=== PATIENT | female | born 1965 | race Caucasian/White ===

== ENCOUNTER 2017-07-11 06:38 | Emergency (ER) | payer MEDICAID, OTHER ==
[~2017-07-11] VITALS: Ht 142.2 cm; Wt 68.0 kg
[2017-07-11 06:42] VITALS: Ht 142.2 cm; Wt 68.0 kg
--- NOTE | 2017-07-11 07:14 | ERD ---
ER Documentation Chief Complaint Chief Complaint dizziness x 5 days HPI Patient is a 51-year-old female with diabetes who presents with dizziness. She felt like her sugar was low. She is felt like this for about 1 week. She feels like the room is spinning. She had a headache as well. She does not take insulin for her diabetes she only takes oral pills. She was having some sweating. She said that she has been eating. Upon review of old medical records this is the patient's first visit to the emergency department. She goes to a local clinic for her care and has not called the primary doctor as of yet. ROS All systems reviewed and are negative except as per history of present illness. Allergies Allergies: Coded Allergies: Penicillins (Verified Allergy, Mild, rash, 07/11/17) PMhx/Soc Positive for diabetes FmHx Family History: No diabetes Physical Exam Vitals Vital Signs Date Time Temp Pulse Resp B/P Pulse Ox O2 Delivery O2 Flow Rate FiO2 07/11/17 06:42 97.5 80 18 122/58 98 Physical Exam Const: No acute distress Head: Atraumatic Eyes: Normal Conjunctiva ENT: Normal External Ears, Nose and Mouth. Neck: Full range of motion..~ No meningismus. Resp: Clear to auscultation bilaterally Cardio: Regular rate and rhythm, no murmurs Abd: Soft, non tender, non distended. Normal bowel sounds Skin: No petechiae or rashes Back: No midline or flank tenderness Ext: No cyanosis, or edema Neur: Awake and alert cranial nerves II through XII are intact, no slurred speech, strength is 5 out of 5 in all 4 extremities, no pronator drift Psych: Normal Mood and Affect Results 24 hrs Laboratory Tests Test 07/11/17 07:06 Bedside Glucose 86mg/dL Current Medications Medications (Trade) Dose Ordered Sig/Karol Route PRN Reason Start Time Stop Time Status Last Admin Dose Admin Ibuprofen (Motrin) 800 mg ONCE ONCE PO 07/11/17 07:30 07/11/17 07:31 Procedures/MDM Accu-Chek is normal. EKG read by me: Rate/Rhythm: Regular rate and rhythm at a rate of 77 Intervals: Normal Impression: No evidence of ischemia or arrhythmia Patient is a 51-year-old female who presents with dizziness. She felt like her sugar was low but her Accu-Chek is 86. Her EKG shows no signs of ischemia or arrhythmia. At this point I believe outpatient management is appropriate. The patient will need to follow-up closely with her primary doctor within 24-48 hours for evaluation. I believe the risk of doing a CT scan of the brain outweigh the benefits. I doubt stroke, intra-cranial mass, or intracranial hemorrhage. I doubt acute coronary syndrome. I doubt severe hypoglycemia. Departure Diagnosis: Primary Impression: Hypoglycemia Additional Impression: Dizziness Condition: Fair Patient Instructions: Dizziness, Unk Cause Additional Instructions: Llame al doctor MAANA y crow camron BRIDGETTE PARA DENTRO DE 1-2 MCCALLUM.Dgale a la secretaria que nosotros le instruimos hacer esta bridgette.Avise o llame si lawrence condicin se empeora antes de la bridgette. Regresa aqui si peor o no mejor. GILLIAN HASSAN MD Jul 11, 2017 07:14
[2017-07-11] MEDS ORDERED: IBUPROFEN 800 MG TAB PO ONE (07:30)
== END 2017-07-11 08:09 | disposition home or self-care (01) ==
LOC: E/R 06:38
DX: E10.649 Type 1 diabetes mellitus with hypoglycemia without coma (principal)
CPT/HCPCS: 82962; 93005; Z7502; Z7610

== ENCOUNTER 2019-01-17 16:01 | Inpatient (IN) | payer OTHER ==
[~2019-01-17] VITALS: Ht 142.2 cm; Wt 69.0 kg
[2019-01-18 00:35] VITALS: BP 136/62; PULSE 70; RESP 18
[2019-01-18 00:42] VITALS: Ht 142.2 cm; Wt 69.0 kg
[2019-01-18] MEDS ORDERED: MTF1000T PO (01:02)
[2019-01-18] MEDS ORDERED: GLIP5TAB13 PO (01:02)
[2019-01-18] MEDS ORDERED: ATOR40TA68 PO (01:02)
[2019-01-18] MEDS ORDERED: ALBUTEROL/IPRATROPIUM (NEB) 3 ML AMP HHN PRN (01:30)
[2019-01-18] MEDS: INSULIN ASPART [NOVOLOG] 3 ML PEN SC SCH ×5 (01:30→21:00)
[2019-01-18] MEDS ORDERED: ONDANSETRON 4 MG INJ IV PRN (01:30)
[2019-01-18] MEDS ORDERED: NACL 0.9% 3 ML SYG IV SCH (01:30)
[2019-01-18] MEDS ORDERED: ACETAMINOPHEN 325 MG TAB PO PRN (01:30)
[2019-01-18] MEDS: DEXTROSE 5%-0.45% NACL 1,000 ML IV SCH ×2 (01:57→10:26)
[2019-01-18 02:00] VITALS: BP 105/54; PULSE 72; RESP 18
[2019-01-18] MEDS ORDERED: GLUCOSE GEL 15 GRAM TUBE BUCCAL PRN (02:00)
[2019-01-18] MEDS ORDERED: DEXTROSE 50% 50 ML SYRINGE IV PRN ×2 (02:00)
[2019-01-18] MEDS ORDERED: ACCU-CHEK XX SCH (02:00)
[2019-01-18] MEDS ORDERED: GLUCOSE GEL 15 GRAM TUBE PO PRN ×2 (02:00)
[2019-01-18] MEDS ORDERED: GLUCAGON 1 MG INJ IM PRN (02:00)
[2019-01-18] MEDS: HYDROCODONE/APAP (5/325) TAB PO PRN ×2 (02:08→22:22)
--- NOTE | 2019-01-18 06:05 | HP ---
Date/Time of Note Date/Time of Note DATE: 01/18/19 TIME: 06:02 Assessment/Plan VTE Prophylaxis Pharmacological prophylaxis: heparin Lines/Catheters IV Catheter Type (from Nrsg): Peripheral IV Assessment/Plan Assessment/Plan 1. Right upper quadrant abdominal pain -Keep n.p.o. for now -Obtain abdominal imaging -Check liver chemistries, lipase and urinalysis -Pain management 2. Type 2 diabetes: Insulin while in-house 3. Dyslipidemia: will resume statin when no longer n.p.o. Results 24hrs Laboratory Tests Test 01/18/19 02:02 Bedside Glucose 120 HPI/ROS Admit Date/Time Admit Date/Time January 18, 2019 at 00:13 Hx of Present Illness This is a 53-year-old female with a history of type 2 diabetes and dyslipidemia who initially presented on outside hospital complaining of abdominal pain. Pain is mainly localized in the right upper quadrant area and has been going on for the past 2 to 3 weeks. Reported occasional nausea. Denied vomiting, diarrhea or constipation. She also denied fever/chills. Patient was transferred to [facility] for insurance reasons. She had a normal WBC. I do not have the results of her liver chemistries and lipase. PMH/Family/Social Past Medical History Past Surgical Hx: other (see hpi) Family History Significant Family History: no pertinent family hx Social History Alcohol Use: heavy (2 beers a day) Smoking Status: Never smoker Drug Use: none Exam Constitutional: other (no acute distress) ENMT: nl external ears & nose Neck: supple, non-tender Respiratory: normal air movement Cardiovascular: nl pulses Gastrointestinal: soft Extremities: normal pulses Medications Current Medications Dextrose/Sodium Chloride 1,000 ml @ 125 mls/hr Q8H IV Last administered on 01/18/19at 01:57; Admin Dose 125 MLS/HR; Start 01/18/19 at 01:29 IV Flush (NS 3 ml) 3 ml PER PROTOCOL IV ; Start 01/18/19 at 01:30 Ondansetron HCl (Zofran Inj) 4 mg Q6H PRN IV NAUSEA/VOMITING; Start 01/18/19 at 01:30 Acetaminophen (Tylenol Tab) 650 mg Q6H PRN PO .PAIN 1-3 OR TEMP; Start 01/18/19 at 01:30 Acetaminophen/ Hydrocodone Bitart ([place] (5/325)) 1 tab Q6H PRN PO .MOD PAIN 4- 6; Start 01/18/19 at 01:30 Acetaminophen/ Hydrocodone Bitart ([place] (5/325)) 2 tab Q6H PRN PO .SEVERE PAIN 7-10 Last administered on 01/18/19at 02:08; Admin Dose 2 TAB; Start 01/18/19 at 01:30 Albuterol/ Ipratropium (Duoneb) 3 ml Q2H RESP THERAPY PRN HHN SHORTNESS OF BREATH; Start 01/18/19 at 01:30 Diagnostic Test (Pha) (Accu-Chek) 1 ea 02 XX ; Start 01/18/19 at 02:00 Insulin Aspart (Novolog Insulin Pen) NOVOLOG *MODERATE* ALGORI... Q6H SC ; Start 01/18/19 at 01:30 Miscellaneous Information 1 ea NOTE XX ; Start 01/18/19 at 02:00 Glucose (Glutose) 15 gm Q15M PRN PO DECREASED GLUCOSE; Start 01/18/19 at 02:00 Glucose (Glutose) 22.5 gm Q15M PRN PO DECREASED GLUCOSE; Start 01/18/19 at 02:00 Dextrose (D50w Syringe) 25 ml Q15M PRN IV DECREASED GLUCOSE; Start 01/18/19 at 02:00 Dextrose (D50w Syringe) 50 ml Q15M PRN IV DECREASED GLUCOSE; Start 01/18/19 at 02:00 Glucagon (Glucagen) 1 mg Q15M PRN IM DECREASED GLUCOSE; Start 01/18/19 at 02:00 Glucose (Glutose) 15 gm Q15M PRN BUCCAL DECREASED GLUCOSE; Start 01/18/19 at 02:00 Coded Allergies: Penicillins (Verified Allergy, Mild, rash, 07/11/17) Social History Smoking Status: Never smoker Exam/Review of Systems Vital Signs Vitals Vital Signs Date Temp Pulse Resp B/P (MAP) Pulse Ox O2 O2 Flow FiO2 Time Delivery Rate 01/18/19 98.1 72 18 105/54 98 Room Air 02:00 (71) BARBARA AUSTIN MD January 18, 2019 06:05
[2019-01-18 08:34] VITALS: BP 103/55; PULSE 73; RESP 17
[2019-01-18 14:26] VITALS: BP 113/54; PULSE 73; RESP 18
--- NOTE | 2019-01-18 15:52 | PN ---
Date/Time of Note Date/Time of Note DATE: 01/18/19 TIME: 15:51 Assessment/Plan VTE Prophylaxis Risk score (from Nsg)>0 risk: 2 SCD applied (from Nsg): Yes Pharmacological prophylaxis: heparin Lines/Catheters IV Catheter Type (from Nrsg): Peripheral IV Assessment/Plan Hospital Course 53 yo female with h/o obesity, DMII, s/p cholecystectomy who presents with month of RUQ pain. [facility] at [facility] showed dilatad biliary ducts without obstruction. LFTs mildly elevated concernign for obstructive process - MRCP pending to evaluate biliary tree - No indication for abx at this time - No evidence of pancreatitis DMII: - Basal/bolus insulin Result Diagram: 01/18/19 0610 01/18/19 0610 Results 24hrs Laboratory Tests Test 01/18/19 02:02 01/18/19 06:00 01/18/19 06:10 01/18/19 07:52 Bedside Glucose 120 189 Urine Color YELLOW Urine Clarity CLEAR Urine pH 7.0 Urine Specific Central 1.008 Urine Ketones NEGATIVE Urine Nitrite NEGATIVE Urine Bilirubin NEGATIVE Urine Urobilinogen NEGATIVE Urine Leukocyte Esterase NEGATIVE Urine Microscopic RBC 4 Urine Microscopic WBC 0 Urine Squamous FEW Epithelial Cells Urine Bacteria FEW A Urine Hemoglobin 1+ H Urine Glucose NEGATIVE Urine Total Protein NEGATIVE White Blood Count 6.5 Red Blood Count 4.19 L Hemoglobin 11.9 L Hematocrit 36.9 L Mean Corpuscular Volume 88.1 Mean Corpuscular 28.4 L Hemoglobin Mean Corpuscular 32.2 Hemoglobin Concent Red Cell Distribution 13.4 Width Platelet Count 144 Mean Platelet Volume 11.7 H Immature Granulocytes % 0.200 Neutrophils % 48.3 Lymphocytes % 36.1 Monocytes % 4.9 Eosinophils % 10.3 H Basophils % 0.2 Nucleated Red Blood 0.0 Cells % Immature Granulocytes # 0.010 Neutrophils # 3.2 Lymphocytes # 2.4 Monocytes # 0.3 Eosinophils # 0.7 H Basophils # 0.0 Nucleated Red Blood 0.0 Cells # Prothrombin Time 13.9 Prothrombin Time Ratio 1.1 INR International 1.06 Normalized Ratio Activated 29.6 Partial Thromboplast Time Sodium Level 140 Potassium Level 4.9 Chloride Level 105 Carbon Dioxide Level 29 Anion Gap 6 Blood Urea Nitrogen 8 Creatinine 0.56 Est Glomerular Filtrat > 60 Rate mL/min Glucose Level 168 Hemoglobin A1c 9.4 H Calcium Level 8.9 Phosphorus Level 4.3 Magnesium Level 1.9 Total Bilirubin 1.2 Direct Bilirubin 0.00 Indirect Bilirubin 1.2 H Aspartate Amino 90 H Transf (AST/SGOT) Alanine 86 H Aminotransferase (ALT/SG PT) Alkaline Phosphatase 143 H Total Protein 6.5 Albumin 3.5 Globulin 3.00 Albumin/Globulin Ratio 1.16 Triglycerides Level 114 Cholesterol Level 114 LDL Cholesterol, 35 Calculated HDL Cholesterol 56 Cholesterol/HDL Ratio 2.0 Lipase 247 Test 01/18/19 12:08 Bedside Glucose 142 Subjective 24 Hr Interval Summary Free Text/Dictation Mild abdominal pain still present Comfortable Awaiting MRCP Exam/Review of Systems Exam Vitals Vital Signs Date Temp Pulse Resp B/P (MAP) Pulse Ox O2 O2 Flow FiO2 Time Delivery Rate 01/18/19 98.9 73 18 113/54 96 Room Air 14:26 (73) Intake and Output 01/17/19 01/17/19 01/18/19 1515:00 23:00 07:00 IntakeIntake Total 380 ml BalanceBalance 380 ml Constitutional: alert, oriented, well developed Psych: no complaints, nl mood/affect Head: normocephalic, atraumatic Eyes: nl conjunctiva, EOMI, nl lids, nl sclera, PERRL ENMT: nl external ears & nose, nl lips & teeth, nl nasal mucosa & septum Neck: supple, non-tender Respiratory: clear to auscultation, normal air movement Cardiovascular: regular rate and rhythm, nl pulses Gastrointestinal: soft, nl liver, spleen, non-tender Musculoskeletal: nl extremities to inspection, nl gait and stance Extremities: normal pulses Neurological: LIDAR TECHNICIAN II-XII intact, nl mental status, nl speech, nl strength Skin: nl turgor; No rash or lesions Lymph: nl lymph nodes Results Results 24hrs Laboratory Tests Test 01/18/19 02:02 01/18/19 06:00 01/18/19 06:10 01/18/19 07:52 Bedside Glucose 120 189 Urine Color YELLOW Urine Clarity CLEAR Urine pH 7.0 Urine Specific Central 1.008 Urine Ketones NEGATIVE Urine Nitrite NEGATIVE Urine Bilirubin NEGATIVE Urine Urobilinogen NEGATIVE Urine Leukocyte Esterase NEGATIVE Urine Microscopic RBC 4 Urine Microscopic WBC 0 Urine Squamous FEW Epithelial Cells Urine Bacteria FEW A Urine Hemoglobin 1+ H Urine Glucose NEGATIVE Urine Total Protein NEGATIVE White Blood Count 6.5 Red Blood Count 4.19 L Hemoglobin 11.9 L Hematocrit 36.9 L Mean Corpuscular Volume 88.1 Mean Corpuscular 28.4 L Hemoglobin Mean Corpuscular 32.2 Hemoglobin Concent Red Cell Distribution 13.4 Width Platelet Count 144 Mean Platelet Volume 11.7 H Immature Granulocytes % 0.200 Neutrophils % 48.3 Lymphocytes % 36.1 Monocytes % 4.9 Eosinophils % 10.3 H Basophils % 0.2 Nucleated Red Blood 0.0 Cells % Immature Granulocytes # 0.010 Neutrophils # 3.2 Lymphocytes # 2.4 Monocytes # 0.3 Eosinophils # 0.7 H Basophils # 0.0 Nucleated Red Blood 0.0 Cells # Prothrombin Time 13.9 Prothrombin Time Ratio 1.1 INR International 1.06 Normalized Ratio Activated 29.6 Partial Thromboplast Time Sodium Level 140 Potassium Level 4.9 Chloride Level 105 Carbon Dioxide Level 29 Anion Gap 6 Blood Urea Nitrogen 8 Creatinine 0.56 Est Glomerular Filtrat > 60 Rate mL/min Glucose Level 168 Hemoglobin A1c 9.4 H Calcium Level 8.9 Phosphorus Level 4.3 Magnesium Level 1.9 Total Bilirubin 1.2 Direct Bilirubin 0.00 Indirect Bilirubin 1.2 H Aspartate Amino 90 H Transf (AST/SGOT) Alanine 86 H Aminotransferase (ALT/SG PT) Alkaline Phosphatase 143 H Total Protein 6.5 Albumin 3.5 Globulin 3.00 Albumin/Globulin Ratio 1.16 Triglycerides Level 114 Cholesterol Level 114 LDL Cholesterol, 35 Calculated HDL Cholesterol 56 Cholesterol/HDL Ratio 2.0 Lipase 247 Test 01/18/19 12:08 Bedside Glucose 142 Medications Medication Current Medications IV Flush (NS 3 ml) 3 ml PER PROTOCOL IV ; Start 01/18/19 at 01:30 Ondansetron HCl (Zofran Inj) 4 mg Q6H PRN IV NAUSEA/VOMITING; Start 01/18/19 at 01:30 Acetaminophen (Tylenol Tab) 650 mg Q6H PRN PO .PAIN 1-3 OR TEMP; Start 01/18/19 at 01:30 Acetaminophen/ Hydrocodone Bitart ([place] (5/325)) 1 tab Q6H PRN PO .MOD PAIN 4- 6; Start 01/18/19 at 01:30 Acetaminophen/ Hydrocodone Bitart ([place] (5/325)) 2 tab Q6H PRN PO .SEVERE PAIN 7-10 Last administered on 01/18/19at 02:08; Admin Dose 2 TAB; Start 01/18/19 at 01:30 Albuterol/ Ipratropium (Duoneb) 3 ml Q2H RESP THERAPY PRN HHN SHORTNESS OF BREATH; Start 01/18/19 at 01:30 Insulin Aspart (Novolog Insulin Pen) NOVOLOG *MODERATE* ALGORI... Q6H SC Last administered on 01/18/19at 12:46; Admin Dose 2 UNIT; Start 01/18/19 at 01:30 Miscellaneous Information 1 ea NOTE XX ; Start 01/18/19 at 02:00 Glucose (Glutose) 15 gm Q15M PRN PO DECREASED GLUCOSE; Start 01/18/19 at 02:00 Glucose (Glutose) 22.5 gm Q15M PRN PO DECREASED GLUCOSE; Start 01/18/19 at 02:00 Dextrose (D50w Syringe) 25 ml Q15M PRN IV DECREASED GLUCOSE; Start 01/18/19 at 02:00 Dextrose (D50w Syringe) 50 ml Q15M PRN IV DECREASED GLUCOSE; Start 01/18/19 at 02:00 Glucagon (Glucagen) 1 mg Q15M PRN IM DECREASED GLUCOSE; Start 01/18/19 at 02:00 Glucose (Glutose) 15 gm Q15M PRN BUCCAL DECREASED GLUCOSE; Start 01/18/19 at 02:00 MARCELA ESTRADA MD January 18, 2019 15:52
[2019-01-18 20:00] VITALS: BP 117/60; PULSE 77; RESP 18
[2019-01-19] MEDS: ACCU-CHEK XX SCH (01:12)
[2019-01-19 02:00] VITALS: BP 92/47; PULSE 65; RESP 19
[2019-01-19 08:00] VITALS: BP 100/56; PULSE 65; RESP 17
[2019-01-19] MEDS: INSULIN ASPART [NOVOLOG] 3 ML PEN SC SCH ×4 (08:00→20:54)
[2019-01-19 14:00] VITALS: BP 113/57; PULSE 72; RESP 17
[2019-01-19] MEDS: HYDROCODONE/APAP (5/325) TAB PO PRN ×2 (14:06→22:01)
--- NOTE | 2019-01-19 15:45 | PN ---
Date/Time of Note Date/Time of Note DATE: 01/19/19 TIME: 15:33 Assessment/Plan VTE Prophylaxis Risk score (from Ns)>0 risk: 4 SCD applied (from Ns): Yes Pharmacological prophylaxis: NA/contraindicated Pharm contraindication: low risk/ambulating Lines/Catheters IV C[facility]ter Type (from [facility] [place] [facility] Assessment/Plan Hospital Course 1. Right upper quadrant pain Patient has been having constant right upper quadrant pain for 1 month now Patient with a history of cholecystectomy in the remote past MRCP shows mild intrahepatic and moderate extrahepatic biliary ductal dilatation without evidence of choledocholithiasis, finding could be secondary to prior cholecystectomy Differential diagnosis includes papillary stenosis or occult distal CBD stone, cirrhosis with stigmata of portal hypertension and mild splenomegaly also noted GI consultation obtained LFTs continue to increase 2. Cirrhosis likely secondary to obesity and LEONARD Weight loss 3. DMII Basal/bolus insulin A1c 9.4 Prophylaxis: SCDs Result Diagram: 01/19/19 0534 01/19/19 0534 Results 24hrs Laboratory Tests Test 01/18/19 17:26 01/18/19 21:33 01/19/19 05:33 01/19/19 05:34 Bedside Glucose 167 130 Phosphorus Level 5.3 H Magnesium Level 2.1 White Blood Count 5.8 Red Blood Count 4.03 L Hemoglobin 11.5 L Hematocrit 35.7 L Mean Corpuscular Volume 88.6 Mean Corpuscular 28.5 L Hemoglobin Mean Corpuscular 32.2 Hemoglobin Concent Red Cell Distribution 13.3 Width Platelet Count 149 Mean Platelet Volume 11.8 H Immature Granulocytes % 0.000 L Neutrophils % 38.9 L Lymphocytes % 43.5 Monocytes % 5.5 Eosinophils % 11.8 H Basophils % 0.3 Nucleated Red Blood 0.0 Cells % Immature Granulocytes # 0.000 Neutrophils # 2.2 Lymphocytes # 2.5 Monocytes # 0.3 Eosinophils # 0.7 H Basophils # 0.0 Nucleated Red Blood 0.0 Cells # Sodium Level 142 Potassium Level 4.1 Chloride Level 104 Carbon Dioxide Level 30 Anion Gap 8 Blood Urea Nitrogen 10 Creatinine 0.56 Est Glomerular Filtrat > 60 Rate mL/min Glucose Level 107 # Calcium Level 9.4 Total Bilirubin 1.6 H Direct Bilirubin 0.00 Indirect Bilirubin 1.6 H Aspartate Amino 131 H Transf (AST/SGOT) Alanine 133 H Aminotransferase (ALT/SG PT) Alkaline Phosphatase 196 H Total Protein 6.8 Albumin 3.8 Globulin 3.00 Albumin/Globulin Ratio 1.26 Hepatitis B Surface NEGATIVE Antigen Hepatitis B Core NEGATIVE Total Antibody Hepatitis C Antibody NEGATIVE Test 01/19/19 07:58 01/19/19 12:07 Bedside Glucose 107 149 Subjective 24 Hr Interval Summary Gastrointestinal: pain Exam/Review of Systems Exam Vitals Vital Signs Date Temp Pulse Resp B/P (MAP) Pulse Ox O2 O2 Flow FiO2 Time Delivery Rate 01/19/19 98.9 72 17 113/57 96 Room Air 14:00 (75) Intake and Output 01/18/19 01/18/19 01/19/19 1515:00 23:00 07:00 IntakeIntake Total 620 ml 600 ml 800 ml BalanceBalance 620 ml 600 ml 800 ml Constitutional: alert, oriented Respiratory: clear to auscultation Cardiovascular: regular rate and rhythm Gastrointestinal: soft, tender; No distended Musculoskeletal: nl extremities to inspection Results Results 24hrs Laboratory Tests Test 01/18/19 17:26 01/18/19 21:33 01/19/19 05:33 01/19/19 05:34 Bedside Glucose 167 130 Phosphorus Level 5.3 H Magnesium Level 2.1 White Blood Count 5.8 Red Blood Count 4.03 L Hemoglobin 11.5 L Hematocrit 35.7 L Mean Corpuscular Volume 88.6 Mean Corpuscular 28.5 L Hemoglobin Mean Corpuscular 32.2 Hemoglobin Concent Red Cell Distribution 13.3 Width Platelet Count 149 Mean Platelet Volume 11.8 H Immature Granulocytes % 0.000 L Neutrophils % 38.9 L Lymphocytes % 43.5 Monocytes % 5.5 Eosinophils % 11.8 H Basophils % 0.3 Nucleated Red Blood 0.0 Cells % Immature Granulocytes # 0.000 Neutrophils # 2.2 Lymphocytes # 2.5 Monocytes # 0.3 Eosinophils # 0.7 H Basophils # 0.0 Nucleated Red Blood 0.0 Cells # Sodium Level 142 Potassium Level 4.1 Chloride Level 104 Carbon Dioxide Level 30 Anion Gap 8 Blood Urea Nitrogen 10 Creatinine 0.56 Est Glomerular Filtrat > 60 Rate mL/min Glucose Level 107 # Calcium Level 9.4 Total Bilirubin 1.6 H Direct Bilirubin 0.00 Indirect Bilirubin 1.6 H Aspartate Amino 131 H Transf (AST/SGOT) Alanine 133 H Aminotransferase (ALT/SG PT) Alkaline Phosphatase 196 H Total Protein 6.8 Albumin 3.8 Globulin 3.00 Albumin/Globulin Ratio 1.26 Hepatitis B Surface NEGATIVE Antigen Hepatitis B Core NEGATIVE Total Antibody Hepatitis C Antibody NEGATIVE Test 01/19/19 07:58 01/19/19 12:07 Bedside Glucose 107 149 Medications Medication Current Medications IV Flush (NS 3 ml) 3 ml PER PROTOCOL IV ; Start 01/18/19 at 01:30 Ondansetron HCl (Zofran Inj) 4 mg Q6H PRN IV NAUSEA/VOMITING; Start 01/18/19 at 01:30 Acetaminophen (Tylenol Tab) 650 mg Q6H PRN PO .PAIN 1-3 OR TEMP; Start 01/18/19 at 01:30 Acetaminophen/ Hydrocodone Bitart ([place] (5/325)) 1 tab Q6H PRN PO .MOD PAIN 4- 6 Last administered on 01/19/19at 14:06; Admin Dose 1 TAB; Start 01/18/19 at 01:30 Acetaminophen/ Hydrocodone Bitart ([place] (5/325)) 2 tab Q6H PRN PO .SEVERE PAIN 7-10 Last administered on 01/18/19at 22:22; Admin Dose 2 TAB; Start 01/18/19 at 01:30 Albuterol/ Ipratropium (Duoneb) 3 ml Q2H RESP THERAPY PRN HHN SHORTNESS OF BREATH; Start 01/18/19 at 01:30 Miscellaneous Information 1 ea NOTE XX ; Start 01/18/19 at 02:00 Glucose (Glutose) 15 gm Q15M PRN PO DECREASED GLUCOSE; Start 01/18/19 at 02:00 Glucose (Glutose) 22.5 gm Q15M PRN PO DECREASED GLUCOSE; Start 01/18/19 at 02:00 Dextrose (D50w Syringe) 25 ml Q15M PRN IV DECREASED GLUCOSE; Start 01/18/19 at 02:00 Dextrose (D50w Syringe) 50 ml Q15M PRN IV DECREASED GLUCOSE; Start 01/18/19 at 02:00 Glucagon (Glucagen) 1 mg Q15M PRN IM DECREASED GLUCOSE; Start 01/18/19 at 02:00 Glucose (Glutose) 15 gm Q15M PRN BUCCAL DECREASED GLUCOSE; Start 01/18/19 at 02:00 Insulin Aspart (Novolog Insulin Pen) NOVOLOG *MODERATE* ALGORITHM WITH MEALS BEDTIME SC Last administered on 01/19/19at 12:12; Admin Dose 2 UNIT; Start 01/18/19 at 21:00 Diagnostic Test (Pha) (Accu-Chek) 1 02 XX ; Start 01/19/19 at 02:00 VASQUEZ HOLLAND January 19, 2019 15:43
--- NOTE | 2019-01-19 16:09 | CONS ---
Assessment/Plan Assessment/Plan Hospital Course (Demo Recall) Summary Assessment and Plan: Assessment: Dilated common bile duct- 15mm Right upper quadrant pain Imaging suggestive of cirrhosis -With stigmata of portal hypertension with mild splenomegaly DM, type 2 Over-weight Plan: Clear liquid diet ERCP late afternoon/evening 01/20/19 Endoscopy - risks/benefits/alternatives/indications of procedure and sedation/anesthesia discussed with patient who states understading and gives informed consent to proceed. Will order auto-immune work-up to further assess etiology questionable of liver cirrhosis CMP in am. NPO after 01/20/19 1100 Patient seen in collaboration with CC: MINNIE OSUNA MD ; Consultation Date/Type/Reason Admit Date/Time January 18, 2019 at 00:13 Date of Consultation: January 19, 2019 Type of Consult GI Reason for Consultation Elevated LFTS Dilated CBD 15mm Date/Time of Note DATE: 01/19/19 TIME: 16:02 Hx of Present Illness This is a 53-year-old female past medical history of obesity type 2 diabetes who presented to an outside hospital with complaints of abdominal pain she was transferred to [facility] for further work-up. Here patient underwent MRCP showing mild intrahepatic and moderate extrahepatic biliary ductal dilation without evidence of choledocholithiasis. Findings could be secondary to prior cholecystectomy, differential diagnosis includes papillary stenosis or occult distal CBD stone. Additionally there is mild liver surface nodularity findings suggestive of cirrhosis and stigmata of portal hypertension with mild splenomegaly. Labs were obtained LFTs are increasing since admission initially patient does have hyperbilirubinemia although this is indirect. A hepatitis serology was completed and is negative for hepatitis B/C. INR 1.06 and mild normocytic anemia is noted. Time evaluation patient is alert and oriented [place]vian-speaking her family is at bedside she continues to complain of right upper quadrant pain worse with palpation she denies nausea/vomiting, hematemesis, melena, hematochezia, diarrhea or constipation. Discussed plan for ERCP tomorrow. I reviewed risk/benefits of both sedation and procedure all verbalized understanding and agreeable to procedure Review of Systems: A 12 system, review was conducted and is negative except as noted in the HPI or here. Past Medical History Home Meds Reported Medications Atorvastatin* (Atorvastatin*) 40 Mg Tablet, PO BID, #30 TAB 01/18/19 Glipizide* (Glipizide*) 5 Mg Tablet, PO BID, TAB 01/18/19 Metformin* (Glucophage*) 1,000 Mg Tablet, 1000 MG PO BID PRN for ELEVATED GLUCOSE, #60 TAB 01/18/19 Medications Current Medications IV Flush (NS 3 ml) 3 ml PER PROTOCOL IV ; Start 01/18/19 at 01:30 Ondansetron HCl (Zofran Inj) 4 mg Q6H PRN IV NAUSEA/VOMITING; Start 01/18/19 at 01:30 Acetaminophen (Tylenol Tab) 650 mg Q6H PRN PO .PAIN 1-3 OR TEMP; Start 01/18/19 at 01:30 Acetaminophen/ Hydrocodone Bitart ([place] (5/325)) 1 tab Q6H PRN PO .MOD PAIN 4- 6 Last administered on 01/19/19at 14:06; Admin Dose 1 TAB; Start 01/18/19 at 01:30 Acetaminophen/ Hydrocodone Bitart ([place] (5/325)) 2 tab Q6H PRN PO .SEVERE PAIN 7-10 Last administered on 01/18/19at 22:22; Admin Dose 2 TAB; Start 01/18/19 at 01:30 Albuterol/ Ipratropium (Duoneb) 3 ml Q2H RESP THERAPY PRN HHN SHORTNESS OF BR EATH; Start 01/18/19 at 01:30 Miscellaneous Information 1 ea NOTE XX ; Start 01/18/19 at 02:00 Glucose (Glutose) 15 gm Q15M PRN PO DECREASED GLUCOSE; Start 01/18/19 at 02:00 Glucose (Glutose) 22.5 gm Q15M PRN PO DECREASED GLUCOSE; Start 01/18/19 at 02:00 Dextrose (D50w Syringe) 25 ml Q15M PRN IV DECREASED GLUCOSE; Start 01/18/19 at 02:00 Dextrose (D50w Syringe) 50 ml Q15M PRN IV DECREASED GLUCOSE; Start 01/18/19 at 02:00 Glucagon (Glucagen) 1 mg Q15M PRN IM DECREASED GLUCOSE; Start 01/18/19 at 02:00 Glucose (Glutose) 15 gm Q15M PRN BUCCAL DECREASED GLUCOSE; Start 01/18/19 at 02:00 Insulin Aspart (Novolog Insulin Pen) NOVOLOG *MODERATE* ALGORITHM WITH MEALS BEDTIME SC Last administered on 01/19/19at 12:12; Admin Dose 2 UNIT; Start 01/18/19 at 21:00 Diagnostic Test (Pha) (Accu-Chek) 1 ea 02 XX ; Start 01/19/19 at 02:00 Allergies: Coded Allergies: Penicillins (Verified Allergy, Mild, rash, 07/11/17) Social History Smoking Status: Never smoker Exam/Review of Systems Exam Vitals Vital Signs Date Temp Pulse Resp B/P (MAP) Pulse Ox O2 O2 Flow FiO2 Time Delivery Rate 01/19/19 98.9 72 17 113/57 96 Room Air 14:00 (75) Intake and Output 01/18/19 01/18/19 01/19/19 1414:59 22:59 06:59 IntakeIntake Total 620 ml 600 ml 800 ml BalanceBalance 620 ml 600 ml 800 ml Exam PHYSICAL EXAMINATION: GENERAL: Alert & oriented x 3, in no acute distress SKIN: No lesions HEAD: Normocephalic, atraumatic, no tenderness. EYES: Pupils equal reactive to light and accommodation, no discharge. EARS/NOSE AND THROAT: Ears normal, nose normal. NECK: Supple, no masses, thyroid normal. CHEST: Inspection within normal limits. CARDIOVASCULAR: Heart: Regular rate and rhythm. RESPIRATORY: Lungs clear to auscultation GASTROINTESTINAL AND LIVER: Abdomen: Soft, RUQ tenderness, non-distended, no hernias, no masses, no organomegaly, normoactive bowel sounds. Rectal: Deferred. EXTREMITIES: No cyanosis, clubbing or edema. Results Result Diagram: 01/19/19 0534 01/19/19 0534 Results 24hrs Laboratory Tests Test 01/18/19 17:26 01/18/19 21:33 01/19/19 05:33 01/19/19 05:34 Bedside Glucose 167 130 Phosphorus Level 5.3 H Magnesium Level 2.1 White Blood Count 5.8 Red Blood Count 4.03 L Hemoglobin 11.5 L Hematocrit 35.7 L Mean Corpuscular Volume 88.6 Mean Corpuscular 28.5 L Hemoglobin Mean Corpuscular 32.2 Hemoglobin Concent Red Cell Distribution 13.3 Width Platelet Count 149 Mean Platelet Volume 11.8 H Immature Granulocytes % 0.000 L Neutrophils % 38.9 L Lymphocytes % 43.5 Monocytes % 5.5 Eosinophils % 11.8 H Basophils % 0.3 Nucleated Red Blood 0.0 Cells % Immature Granulocytes # 0.000 Neutrophils # 2.2 Lymphocytes # 2.5 Monocytes # 0.3 Eosinophils # 0.7 H Basophils # 0.0 Nucleated Red Blood 0.0 Cells # Sodium Level 142 Potassium Level 4.1 Chloride Level 104 Carbon Dioxide Level 30 Anion Gap 8 Blood Urea Nitrogen 10 Creatinine 0.56 Est Glomerular Filtrat > 60 Rate mL/min Glucose Level 107 # Calcium Level 9.4 Total Bilirubin 1.6 H Direct Bilirubin 0.00 Indirect Bilirubin 1.6 H Aspartate Amino 131 H Transf (AST/SGOT) Alanine 133 H Aminotransferase (ALT/SG PT) Alkaline Phosphatase 196 H Total Protein 6.8 Albumin 3.8 Globulin 3.00 Albumin/Globulin Ratio 1.26 Hepatitis B Surface NEGATIVE Antigen Hepatitis B Core NEGATIVE Total Antibody Hepatitis C Antibody NEGATIVE Test 01/19/19 07:58 01/19/19 12:07 Bedside Glucose 107 149 Medications Medication Current Medications IV Flush (NS 3 ml) 3 ml PER PROTOCOL IV ; Start 01/18/19 at 01:30 Ondansetron HCl (Zofran Inj) 4 mg Q6H PRN IV NAUSEA/VOMITING; Start 01/18/19 at 01:30 Acetaminophen (Tylenol Tab) 650 mg Q6H PRN PO .PAIN 1-3 OR TEMP; Start 01/18/19 at 01:30 Acetaminophen/ Hydrocodone Bitart ([place] (5/325)) 1 tab Q6H PRN PO .MOD PAIN 4- 6 Last administered on 01/19/19at 14:06; Admin Dose 1 TAB; Start 01/18/19 at 01:30 Acetaminophen/ Hydrocodone Bitart ([place] (5/325)) 2 tab Q6H PRN PO .SEVERE PAIN 7-10 Last administered on 01/18/19at 22:22; Admin Dose 2 TAB; Start 01/18/19 at 01:30 Albuterol/ Ipratropium (Duoneb) 3 ml Q2H RESP THERAPY PRN HHN SHORTNESS OF BREATH; Start 01/18/19 at 01:30 Miscellaneous Information 1 ea NOTE XX ; Start 01/18/19 at 02:00 Glucose (Glutose) 15 gm Q15M PRN PO DECREASED GLUCOSE; Start 01/18/19 at 02:00 Glucose (Glutose) 22.5 gm Q15M PRN PO DECREASED GLUCOSE; Start 01/18/19 at 02:00 Dextrose (D50w Syringe) 25 ml Q15M PRN IV DECREASED GLUCOSE; Start 01/18/19 at 02:00 Dextrose (D50w Syringe) 50 ml Q15M PRN IV DECREASED GLUCOSE; Start 01/18/19 at 02:00 Glucagon (Glucagen) 1 mg Q15M PRN IM DECREASED GLUCOSE; Start 01/18/19 at 02:00 Glucose (Glutose) 15 gm Q15M PRN BUCCAL DECREASED GLUCOSE; Start 01/18/19 at 02:00 Insulin Aspart (Novolog Insulin Pen) NOVOLOG *MODERATE* ALGORITHM WITH MEALS BEDTIME SC Last administered on 01/19/19at 12:12; Admin Dose 2 UNIT; Start at 21:00 Diagnostic Test (Pha) (Accu-Chek) 1 ea 02 XX ; Start 01/19/19 at 02:00 TARSHA RICE January 19, 2019 16:09
[2019-01-19 20:00] VITALS: BP_SYST 103; BP_SYST 111; BP_DIAS 51; BP_DIAS 53; PULSE 65; PULSE 68; RESP 18
[2019-01-20] VITALS (13 sets, daily range): BP systolic 100–122; BP diastolic 51–73; PULSE 65–77; RESP 11–19
[2019-01-20] MEDS: ACCU-CHEK XX SCH (01:19)
[2019-01-20] MEDS: INSULIN ASPART [NOVOLOG] 3 ML PEN SC SCH ×3 (08:00→20:37)
[2019-01-20] MEDS: HYDROCODONE/APAP (5/325) TAB PO PRN (08:25)
--- NOTE | 2019-01-20 15:41 | PN ---
Date/Time of Note Date/Time of Note DATE: 01/20/19 TIME: 15:40 Assessment/Plan VTE Prophylaxis Risk score (from Ns)>0 risk: 3 SCD applied (from Ns): Yes Pharmacological prophylaxis: NA/contraindicated Pharm contraindication: surgical contra Lines/Catheters IV C[facility]from [facility] [place] Assessment/Plan Hospital Course 1. Right upper quadrant pain Patient has been having constant right upper quadrant pain for 1 month now Patient with a history of cholecystectomy in the remote past MRCP shows mild intrahepatic and moderate extrahepatic biliary ductal dilatation without evidence of choledocholithiasis, finding could be secondary to prior cholecystectomy Differential diagnosis includes papillary stenosis or occult distal CBD stone, cirrhosis with stigmata of portal hypertension and mild splenomegaly also noted GI consultation appreciated, ERCP today LFTs continue to increase 2. Cirrhosis likely secondary to obesity and LEONARD Weight loss 3. DMII Basal/bolus insulin A1c 9.4 Prophylaxis: SCDs Result Diagram: 01/19/19 0534 01/20/19 0801 Results 24hrs Laboratory Tests Test 01/19/19 17:07 01/19/19 20:52 01/20/19 08:00 01/20/19 08:01 Bedside Glucose 188 127 Serum HCG, Qualitative NEGATIVE Sodium Level 141 Potassium Level 4.6 Chloride Level 103 Carbon Dioxide Level 29 Anion Gap 9 Blood Urea Nitrogen 10 Creatinine 0.53 Est Glomerular Filtrat > 60 Rate mL/min Glucose Level 142 Calcium Level 9.3 Total Bilirubin 1.9 H Direct Bilirubin 0.00 Indirect Bilirubin 1.9 H Aspartate Amino 171 H Transf (AST/SGOT) Alanine 203 H Aminotransferase (ALT/SG PT) Alkaline Phosphatase 269 H Total Protein 7.6 Albumin 4.1 Globulin 3.50 H Albumin/Globulin Ratio 1.17 Test 01/20/19 08:23 01/20/19 12:08 Bedside Glucose 138 172 Subjective 24 Hr Interval Summary Gastrointestinal: pain Exam/Review of Systems Exam Vitals Vital Signs Date Temp Pulse Resp B/P (MAP) Pulse Ox O2 O2 Flow FiO2 Time Delivery Rate 01/20/19 98.0 68 18 100/58 99 Room Air 14:00 (72) Intake and Output 01/19/19 01/19/19 01/20/19 1515:00 23:00 07:00 IntakeIntake Total 1200 ml 700 ml BalanceBalance 1200 ml 700 ml Constitutional: alert, oriented Respiratory: clear to auscultation Cardiovascular: regular rate and rhythm Gastrointestinal: soft; No distended Musculoskeletal: nl extremities to inspection Results Results 24hrs Laboratory Tests Test 01/19/19 17:07 01/19/19 20:52 01/20/19 08:00 01/20/19 08:01 Bedside Glucose 188 127 Serum HCG, Qualitative NEGATIVE Sodium Level 141 Potassium Level 4.6 Chloride Level 103 Carbon Dioxide Level 29 Anion Gap 9 Blood Urea Nitrogen 10 Creatinine 0.53 Est Glomerular Filtrat > 60 Rate mL/min Glucose Level 142 Calcium Level 9.3 Total Bilirubin 1.9 H Direct Bilirubin 0.00 Indirect Bilirubin 1.9 H Aspartate Amino 171 H Transf (AST/SGOT) Alanine 203 H Aminotransferase (ALT/SG PT) Alkaline Phosphatase 269 H Total Protein 7.6 Albumin 4.1 Globulin 3.50 H Albumin/Globulin Ratio 1.17 Test 01/20/19 08:23 01/20/19 12:08 Bedside Glucose 138 172 Medications Medication Current Medications IV Flush (NS 3 ml) 3 ml PER PROTOCOL IV ; Start 01/18/19 at 01:30 Ondansetron HCl (Zofran Inj) 4 mg Q6H PRN IV NAUSEA/VOMITING; Start 01/18/19 at 01:30 Acetaminophen (Tylenol Tab) 650 mg Q6H PRN PO .PAIN 1-3 OR TEMP; Start 01/18/19 at 01:30 Acetaminophen/ Hydrocodone Bitart ([place] (5/325)) 1 tab Q6H PRN PO .MOD PAIN 4- 6 Last administered on 01/20/19at 08:25; Admin Dose 1 TAB; Start 01/18/19 at 01:30 Acetaminophen/ Hydrocodone Bitart ([place] (5/325)) 2 tab Q6H PRN PO .SEVERE PAIN 7-10 Last administered on 01/18/19at 22:22; Admin Dose 2 TAB; Start 01/18/19 at 01:30 Albuterol/ Ipratropium (Duoneb) 3 ml Q2H RESP THERAPY PRN HHN SHORTNESS OF BREATH; Start 01/18/19 at 01:30 Miscellaneous Information 1 ea NOTE XX ; Start 01/18/19 at 02:00 Glucose (Glutose) 15 gm Q15M PRN PO DECREASED GLUCOSE; Start 01/18/19 at 02:00 Glucose (Glutose) 22.5 gm Q15M PRN PO DECREASED GLUCOSE; Start 01/18/19 at 02:00 Dextrose (D50w Syringe) 25 ml Q15M PRN IV DECREASED GLUCOSE; Start 01/18/19 at 02:00 Dextrose (D50w Syringe) 50 ml Q15M PRN IV DECREASED GLUCOSE; Start 01/18/19 at 02:00 Glucagon (Glucagen) 1 mg Q15M PRN IM DECREASED GLUCOSE; Start 01/18/19 at 02:00 Glucose (Glutose) 15 gm Q15M PRN BUCCAL DECREASED GLUCOSE; Start 01/18/19 at 02:00 Insulin Aspart (Novolog Insulin Pen) NOVOLOG *MODERATE* ALGORITHM WITH MEALS BEDTIME SC Last administered on 01/19/19at 17:58; Admin Dose 4 UNIT; Start 01/18/19 at 21:00 Diagnostic Test (Pha) (Accu-Chek) 1 ea 02 XX ; Start 01/19/19 at 02:00 Indomethacin (Indocin Supp) [address] ; Start 01/20/19 at 17:30; Stop 01/20/19 at 17:31 VASQUEZ HOLLAND January 20, 2019 15:41
[2019-01-20] MEDS ORDERED: IOHEXOL 300MG/ML 30 ML BTL ONE (16:36)
[2019-01-20] MEDS ORDERED: SEVOFLURANE 15 MIN ONE (17:00)
--- NOTE | 2019-01-20 17:10 | PREAC ---
Date/Time of Note Date/Time of Note DATE: 01/20/19 TIME: 17:09 Anesthesia Eval and Record Evaluation Time Pre-Procedure Interview DATE: 01/20/19 TIME: 17:09 Age 53 Sex female NPO: 8 hrs Preoperative diagnosis Gallstone pancreatitis Planned procedure ERCP Past Medical History Past Medical History: Includes Endo: Diabetes GI: Other (Pancreatitis, gallstones) Surgery & Anesthesia Issues No known issue Meds Anticoagulation: No Beta Todd within 24 hr: No Reason Beta Todd not given: Pt. not on B-Todd Reported Medications Atorvastatin* (Atorvastatin*) 40 Mg Tablet, PO BID, #30 TAB 01/18/19 Glipizide* (Glipizide*) 5 Mg Tablet, PO BID, TAB 01/18/19 Metformin* (Glucophage*) 1,000 Mg Tablet, 1000 MG PO BID PRN for ELEVATED GLUCOSE, #60 TAB 01/18/19 Current Medications IV Flush (NS 3 ml) 3 ml PER PROTOCOL IV ; Start 01/18/19 at 01:30 Ondansetron HCl (Zofran Inj) 4 mg Q6H PRN IV NAUSEA/VOMITING; Start 01/18/19 at 01:30 Acetaminophen (Tylenol Tab) 650 mg Q6H PRN PO .PAIN 1-3 OR TEMP; Start 01/18/19 at 01:30 Acetaminophen/ Hydrocodone Bitart ([place] (5/325)) 1 tab Q6H PRN PO .MOD PAIN 4- 6 Last administered on 01/20/19at 08:25; Admin Dose 1 TAB; Start 01/18/19 at 01:30 Acetaminophen/ Hydrocodone Bitart ([place] (5/325)) 2 tab Q6H PRN PO .SEVERE PAIN 7-10 Last administered on 01/18/19at 22:22; Admin Dose 2 TAB; Start 01/18/19 at 01:30 Albuterol/ Ipratropium (Duoneb) 3 ml Q2H RESP THERAPY PRN HHN SHORTNESS OF BREATH; Start 01/18/19 at 01:30 Miscellaneous Information 1 ea NOTE XX ; Start 01/18/19 at 02:00 Glucose (Glutose) 15 gm Q15M PRN PO DECREASED GLUCOSE; Start 01/18/19 at 02:00 Glucose (Glutose) 22.5 gm Q15M PRN PO DECREASED GLUCOSE; Start 01/18/19 at 02:00 Dextrose (D50w Syringe) 25 ml Q15M PRN IV DECREASED GLUCOSE; Start 01/18/19 at 02:00 Dextrose (D50w Syringe) 50 ml Q15M PRN IV DECREASED GLUCOSE; Start 01/18/19 at 02:00 Glucagon (Glucagen) 1 mg Q15M PRN IM DECREASED GLUCOSE; Start 01/18/19 at 02:00 Glucose (Glutose) 15 gm Q15M PRN BUCCAL DECREASED GLUCOSE; Start 01/18/19 at 02:00 Insulin Aspart (Novolog Insulin Pen) NOVOLOG *MODERATE* ALGORITHM WITH MEALS BEDTIME SC Last administered on 01/19/19at 17:58; Admin Dose 4 UNIT; Start 01/18/19 at 21:00 Diagnostic Test (Pha) (Accu-Chek) 1 ea 02 XX ; Start 01/19/19 at 02:00 Indomethacin (Indocin Supp) 100 mg ONCE ONCE [place] ; Start 01/20/19 at 17:30; Stop 01/20/19 at 17:31 Meds reviewed: Yes Allergies Coded Allergies: Penicillins (Verified Allergy, Mild, rash, 07/11/17) Allergies Reviewed: Yes Labs/Studies Labs Reviewed: Reviewed by anesthesiologist Result Diagram: 01/19/19 0534 01/20/19 0801 Laboratory Tests 01/20/19 08:01 test: Negative Pre-procedure Exam Last vitals Vital Signs Date Temp Pulse Resp B/P (MAP) Pulse Ox O2 O2 Flow FiO2 Time Delivery Rate 01/20/19 98.0 68 18 100/58 99 Room Air 14:00 (72) Airway: Adequate mouth opening Mallampati: Mallampati II Teeth: Normal Lung: Normal Heart: Normal ASA Physical Status ASA physical status: 2 Emergency: E Planned Anesthetic General/MAC: ETT Pre-operative Attestations Prior to commencing anesthesia and surgery, the patient was re-evaluated, there was verification of: *The patient's identity *The results of appropriate recent lab work and preoperative vital signs *The above evaluation not changing prior to induction *Anesthetic plan, risk benefits, alternative and complications discussed with patient/family; questions answered; patient/family understands, accepts and wishes to proceed. GIO WESLEY MD January 20, 2019 17:10
[2019-01-20] MEDS ORDERED: LIDOCAINE 100 MG SYRINGE ONE (17:11)
[2019-01-20] MEDS ORDERED: PROPOFOL 20 ML ONE (17:11)
[2019-01-20] MEDS ORDERED: FENTAnyl 50 MCG/ML VIAL ONE (17:11)
[2019-01-20] MEDS ORDERED: SUCCINYLCHOLINE CHLORIDE 100 MG/5 ML SYG IV ONE (17:11)
[2019-01-20] MEDS ORDERED: MIDAZOLAM 1 MG/ML 2 ML INJ ONE (17:12)
[2019-01-20] MEDS ORDERED: DEXAMETHASONE 4 MG/ML 5 ML INJ ONE (17:23)
[2019-01-20] MEDS ORDERED: ONDANSETRON 4 MG INJ ONE (17:23)
[2019-01-20] MEDS ORDERED: PHENYLephrine (100 MCG/ML) 10ML SYG ONE (17:25)
[2019-01-20] MEDS ORDERED: INDOMETHACIN 50 MG SUPP PR ONE (17:30)
[2019-01-20] MEDS ORDERED: HYDROmorphONE 1 MG/5 ML IV SYRINGE IV PRN ×2 (18:00)
[2019-01-20] MEDS ORDERED: ONDANSETRON 4 MG INJ IV PRN (18:00)
[2019-01-20] MEDS ORDERED: MEPERIDINE 25 MG INJ IV PRN (18:00)
[2019-01-20] MEDS ORDERED: DIPHENHYDRAMINE 50 MG INJ IV PRN (18:00)
--- NOTE | 2019-01-20 18:03 | OPPN ---
Date/Time of Note Date/Time of Note DATE: 01/20/19 TIME: 18:01 Proc Note GI Procedure Date 01/20/19 Indication: diagnostic, treatment Pre-procedure Diagnosis Right upper quadrant pain/dilated biliary tree /post cholecystectomy. Post-procedure Diagnosis Impression: Significant dilatation of the entire biliary tree with a maximum diameter of 15 mm No no intrahepatic abnormalities i.e. stone, stricture present. 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 Post standard sphincterotomy with excellent drainage. Sweep of the biliary tree disclosed no stones/sludge or other abnormalities. Plan: Close observation. Advance diet as tolerated. Monitor liver function test. Procedure Performed: ERCP (With sphincterotomy) Surgeon MINNIE OSUNA MD See signature line Dental Coordinator none Anesthesia Type: general Anesthesiologist: GIO WESLEY MD Tourniquet Time none EBL none Transfusion required none Biopsy 1: None Grafts/Implants none Tubes/Drains none Complication(s) none Disposition: PACU Procedure Description After informed consent, with the patient/relatives understanding the procedure, its indications, potential risks and complications, including but not limited to: allergic reaction, bleeding, perforation or infection, and after all pertinent questions were answered to the patients satisfaction, the patient/relatives signed witnessed informed consent. Following this, premedication was administered slowly IV push under careful cardiovascular and respiratory monitoring with pulse oximetry, automatic blood pressure, and court recording monitor. Once the sedative effect was achieved the patient was place in the prone position in the radiology special procedures suite; the side viewing panendoscope was introduced and advanced under visual control. Careful examination of the upper gastrointestinal tract, both on insertion as well as withdrawal of the instrument disclosed the following findings: Esophagus: The mucosa of the entire appears within normal limits. There is no evidence of esophagitis, varices, neoplasm or stricture. No Hiatal Hernia identified. Stomach: Upon entrance to the stomach air was insufflated, the gastric loyola distended normally, the mucosa of the fundus, body and antrum of the stomach was carefully examined both head-on and on retroflexion, and shows no abnormalities. There is no evidence of gastritis, ulcers, or neoplasm. Pylorus: The pylorus appears patent and within normal limits, with no evidence of gastric outlet obstruction. Duodenum: The duodenal mucosa was carefully examined in the duodenal bulb as well as the second portion of the duodenum and appears unremarkable with no evidence of duodenitis, ulcer or neoplasm. Ampulla of vater: The ampulla of Vater was identified and carefully examined appearing within normal limits. Cannulation: At this point cannulation was accomplished with the following fluor oscopic findings: Pancreatogram: Normal purposely not distended Cholangiogram: Significant dilatation of the entire biliary tree with a maximum diameter of 15 mm. There is smooth tapering to what appears to be a distal common bile duct/papillary stenosis with poor emptying. A standard sphincterotomy was performed and gushes of bile and contrast was seen exiting the biliary tree. 15 to 18 mm balloon was utilized to sweep the biliary tree with no stones/sludge or other abnormalities present. The instrument was then withdrawn the patient tolerated the procedure well and was transfer out of the endoscopy suite awake, and in good condition to continue to recover under observation. Copies To: CC: MINNIE OSUNA MD ; MINNIE OSUNA MD January 20, 2019 18:03
--- NOTE | 2019-01-20 18:27 | PAC ---
Date/Time of Note Date/Time of Note DATE: 01/20/19 TIME: 18:27 Post-Anesthesia Notes Post-Anesthesia Note Last documented vital signs Vital Signs Date Temp Pulse Resp B/P (MAP) Pulse Ox O2 O2 Flow FiO2 Time Delivery Rate 01/20/19 98.0 68 18 100/58 99 Room Air 14:00 (72) Activity: WNL Respiratory function: WNL Cardiovascular function: WNL Mental status: Baseline Pain reasonably controlled: Yes Hydration appropriate: Yes Nausea/Vomiting absent: Yes GIO WESLEY MD January 20, 2019 18:27
[2019-01-21] MEDS: ACCU-CHEK XX SCH (01:34)
[2019-01-21 02:00] VITALS: BP 119/62; PULSE 69; RESP 18
[2019-01-21] MEDS: INSULIN ASPART [NOVOLOG] 3 ML PEN SC SCH ×4 (08:17→21:39)
[2019-01-21 10:09] VITALS: BP 121/55; PULSE 71; RESP 18
--- NOTE | 2019-01-21 11:02 | PN ---
Date/Time of Note Date/Time of Note DATE: 01/21/19 TIME: 11:00 Assessment/Plan VTE Prophylaxis Risk score (from Nsg)>0 risk: 4 SCD applied (from Nsg): Yes Pharmacological prophylaxis: other Lines/Catheters IV Catheter Type (from Nrsg): Saline Lock Assessment/Plan Hospital Course Summary Assessment and Plan: Assessment: Dilated common bile duct- 15mm ERCP 02/20/19 Impression: Significant dilatation of the entire biliary tree with a maximum diameter of 15 mm No no intrahepatic abnormalities i.e. stone, stricture present. 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 Post standard sphincterotomy with excellent drainage. Sweep of the biliary tree disclosed no stones/sludge or other abnormalities. Right upper quadrant pain Imaging suggestive of cirrhosis -With stigmata of portal hypertension with mild splenomegaly DM, type 2 Over-weight Plan: Advance diet as tolerated. Monitor liver function test over night if improved and patient remains stable ok to d/c in am from GI point of view. Pt to f/u with GI after d/c to review auto-immune tests and for fibro score- to assess cirrhosis seen on imaging Patient seen in collaboration with Subjective: Course reviewed with nursing staff Patient interviewed and examined All labs, imaging and other results reviewed The patient reviewed ERCP results with patient and daughter. Pt states she feel well, previous abd pain has resolved,. No c/o n/v. She is harmeet diet well PHYSICAL EXAMINATION: GENERAL: Alert & oriented x 3, in no acute distress SKIN: No lesions HEAD: Normocephalic, atraumatic, no tenderness. EYES: Pupils equal reactive to light and accommodation, no discharge. EARS/NOSE AND THROAT: Ears normal, nose normal. NECK: Supple, no masses, thyroid normal. CHEST: Inspection within normal limits. CARDIOVASCULAR: Heart: Regular rate and rhythm. RESPIRATORY: Lungs clear to auscultation GASTROINTESTINAL AND LIVER: Abdomen: Soft, RUQ tenderness, non-distended, no hernias, no masses, no organomegaly, normoactive bowel sounds. Rectal: Deferred. EXTREMITIES: No cyanosis, clubbing or edema. Result Diagram: 01/19/19 0534 01/21/19 0548 Results 24hrs Laboratory Tests Test 01/20/19 12:08 01/20/19 16:17 01/20/19 18:55 01/20/19 20:31 Bedside Glucose 172 101 134 175 Test 01/21/19 05:48 01/21/19 07:57 Sodium Level 139 Potassium Level 5.1 Chloride Level 104 Carbon Dioxide Level 26 Anion Gap 9 Blood Urea Nitrogen 12 Creatinine 0.56 Est Glomerular Filtrat > 60 Rate mL/min Glucose Level 187 Calcium Level 9.6 Total Bilirubin 1.5 H Direct Bilirubin 0.00 Indirect Bilirubin 1.5 H Aspartate Amino 169 H Transf (AST/SGOT) Alanine 232 H Aminotransferase (ALT/SG PT) Alkaline Phosphatase 310 H Total Protein 8.5 H Albumin 4.4 Globulin 4.10 H Albumin/Globulin Ratio 1.07 Bedside Glucose 156 Exam/Review of Systems Exam Vitals Vital Signs Date Temp Pulse Resp B/P (MAP) Pulse Ox O2 O2 Flow FiO2 Time Delivery Rate 01/21/19 97.9 71 18 121/55 95 Room Air 10:09 (77) Intake and Output 01/20/19 01/20/19 01/21/19 1515:00 23:00 07:00 IntakeIntake Total 600 ml BalanceBalance 600 ml Results Results 24hrs Laboratory Tests Test 01/20/19 12:08 01/20/19 16:17 01/20/19 18:55 01/20/19 20:31 Bedside Glucose 172 101 134 175 Test 01/21/19 05:48 01/21/19 07:57 Sodium Level 139 Potassium Level 5.1 Chloride Level 104 Carbon Dioxide Level 26 Anion Gap 9 Blood Urea Nitrogen 12 Creatinine 0.56 Est Glomerular Filtrat > 60 Rate mL/min Glucose Level 187 Calcium Level 9.6 Total Bilirubin 1.5 H Direct Bilirubin 0.00 Indirect Bilirubin 1.5 H Aspartate Amino 169 H Transf (AST/SGOT) Alanine 232 H Aminotransferase (ALT/SG PT) Alkaline Phosphatase 310 H Total Protein 8.5 H Albumin 4.4 Globulin 4.10 H Albumin/Globulin Ratio 1.07 Bedside Glucose 156 Medications Medication Current Medications IV Flush (NS 3 ml) 3 ml PER PROTOCOL IV ; Start 01/18/19 at 01:30 Ondansetron HCl (Zofran Inj) 4 mg Q6H PRN IV NAUSEA/VOMITING; Start 01/18/19 at 01:30 Acetaminophen (Tylenol Tab) 650 mg Q6H PRN PO .PAIN 1-3 OR TEMP; Start 01/18/19 at 01:30 Acetaminophen/ Hydrocodone Bitart ([place] (5/325)) 1 tab Q6H PRN PO .MOD PAIN 4- 6 Last administered on 01/20/19at 08:25; Admin Dose 1 TAB; Start 01/18/19 at 01:30 Acetaminophen/ Hydrocodone Bitart ([place] (5/325)) 2 tab Q6H PRN PO .SEVERE PAIN 7-10 Last administered on 01/18/19at 22:22; Admin Dose 2 TAB; Start 01/18/19 at 01:30 Albuterol/ Ipratropium (Duoneb) 3 ml Q2H RESP THERAPY PRN HHN SHORTNESS OF BREATH; Start 01/18/19 at 01:30 Miscellaneous Information 1 ea NOTE XX ; Start 01/18/19 at 02:00 Glucose (Glutose) 15 gm Q15M PRN PO DECREASED GLUCOSE; Start 01/18/19 at 02:00 Glucose (Glutose) 22.5 gm Q15M PRN PO DECREASED GLUCOSE; Start 01/18/19 at 02:00 Dextrose (D50w Syringe) 25 ml Q15M PRN IV DECREASED GLUCOSE; Start 01/18/19 at 02:00 Dextrose (D50w Syringe) 50 ml Q15M PRN IV DECREASED GLUCOSE; Start 01/18/19 at 02:00 Glucagon (Glucagen) 1 mg Q15M PRN IM DECREASED GLUCOSE; Start 01/18/19 at 02:00 Glucose (Glutose) 15 gm Q15M PRN BUCCAL DECREASED GLUCOSE; Start 01/18/19 at 02:00 Insulin Aspart (Novolog Insulin Pen) NOVOLOG *MODERATE* ALGORITHM WITH MEALS BEDTIME SC Last administered on 01/21/19at 08:17; Admin Dose 2 UNIT; Start 01/18/19 at 21:00 Diagnostic Test (Pha) (Accu-Chek) 1 ea 02 XX ; Start 01/19/19 at 02:00 TARSAH RICE January 21, 2019 11:02
[2019-01-21 14:38] VITALS: BP 116/56; PULSE 60; RESP 18
--- NOTE | 2019-01-21 14:38 | PN ---
Date/Time of Note Date/Time of Note DATE: 01/21/19 TIME: 14:35 Assessment/Plan VTE Prophylaxis Risk score (from Ns)>0 risk: 3 SCD applied (from Ns): Yes Pharmacological prophylaxis: NA/contraindicated Pharm contraindication: low risk/ambulating Lines/Catheters IV C[facility] Type (from [facility] Saline Lock Assessment/Plan Hospital Course 1. Right upper quadrant pain secondary to dilation of the biliary tree secondary to distal common bile duct/papillary stricture with poor emptying Patient is now status post ERCP with sphincterotomy, no stones or sludge noted, no stenosis noted Patient has been having constant right upper quadrant pain for 1 month now Patient with a history of cholecystectomy in the remote past MRCP shows mild intrahepatic and moderate extrahepatic biliary ductal dilatation without evidence of choledocholithiasis, cirrhosis with stigmata of portal hypertension and mild splenomegaly also noted GI consultation appreciated LFTs continue to be slightly elevated 2. Cirrhosis likely secondary to obesity and LEONARD Weight loss Hepatitis panel is negative 3. DMII Basal/bolus insulin A1c 9.4 Prophylaxis: SCDs DC planning: LFTs are still somewhat elevated, check LFTs in a.m. and if improved then will DC home Result Diagram: 01/19/19 0534 01/21/19 0548 Results 24hrs Laboratory Tests Test 01/20/19 16:17 01/20/19 18:55 01/20/19 20:31 01/21/19 05:48 Bedside Glucose 101 134 175 Sodium Level 139 Potassium Level 5.1 Chloride Level 104 Carbon Dioxide Level 26 Anion Gap 9 Blood Urea Nitrogen 12 Creatinine 0.56 Est Glomerular Filtrat > 60 Rate mL/min Glucose Level 187 Calcium Level 9.6 Total Bilirubin 1.5 H Direct Bilirubin 0.00 Indirect Bilirubin 1.5 H Aspartate Amino 169 H Transf (AST/SGOT) Alanine 232 H Aminotransferase (ALT/SG PT) Alkaline Phosphatase 310 H Total Protein 8.5 H Albumin 4.4 Globulin 4.10 H Albumin/Globulin Ratio 1.07 Test 01/21/19 07:57 01/21/19 13:49 Bedside Glucose 156 208 Subjective 24 Hr Interval Summary Constitutional: no complaints Exam/Review of Systems Exam Vitals Vital Signs Date Temp Pulse Resp B/P (MAP) Pulse Ox O2 O2 Flow FiO2 Time Delivery Rate 01/21/19 97.9 71 18 121/55 95 Room Air 10:09 (77) Intake and Output 01/20/19 01/20/19 01/21/19 1515:00 23:00 07:00 IntakeIntake Total 600 ml BalanceBalance 600 ml Constitutional: alert, oriented Respiratory: clear to auscultation Cardiovascular: regular rate and rhythm Gastrointestinal: soft; No distended Musculoskeletal: nl extremities to inspection Results Results 24hrs Laboratory Tests Test 01/20/19 16:17 01/20/19 18:55 01/20/19 20:31 01/21/19 05:48 Bedside Glucose 101 134 175 Sodium Level 139 Potassium Level 5.1 Chloride Level 104 Carbon Dioxide Level 26 Anion Gap 9 Blood Urea Nitrogen 12 Creatinine 0.56 Est Glomerular Filtrat > 60 Rate mL/min Glucose Level 187 Calcium Level 9.6 Total Bilirubin 1.5 H Direct Bilirubin 0.00 Indirect Bilirubin 1.5 H Aspartate Amino 169 H Transf (AST/SGOT) Alanine 232 H Aminotransferase (ALT/SG PT) Alkaline Phosphatase 310 H Total Protein 8.5 H Albumin 4.4 Globulin 4.10 H Albumin/Globulin Ratio 1.07 Test 01/21/19 07:57 01/21/19 13:49 Bedside Glucose 156 208 Medications Medication Current Medications IV Flush (NS 3 ml) 3 ml PER PROTOCOL IV ; Start 01/18/19 at 01:30 Ondansetron HCl (Zofran Inj) 4 mg Q6H PRN IV NAUSEA/VOMITING; Start 01/18/19 at 01:30 Acetaminophen (Tylenol Tab) 650 mg Q6H PRN PO .PAIN 1-3 OR TEMP; Start 01/18/19 at 01:30 Acetaminophen/ Hydrocodone Bitart ([place] (5/325)) 1 tab Q6H PRN PO .MOD PAIN 4- 6 Last administered on 01/20/19at 08:25; Admin Dose 1 TAB; Start 01/18/19 at 01:30 Acetaminophen/ Hydrocodone Bitart ([place] (5/325)) 2 tab Q6H PRN PO .SEVERE PAIN 7-10 Last administered on 01/18/19at 22:22; Admin Dose 2 TAB; Start 01/18/19 at 01:30 Albuterol/ Ipratropium (Duoneb) 3 ml Q2H RESP THERAPY PRN HHN SHORTNESS OF BREATH; Start 01/18/19 at 01:30 Miscellaneous Information 1 ea NOTE XX ; Start 01/18/19 at 02:00 Glucose (Glutose) 15 gm Q15M PRN PO DECREASED GLUCOSE; Start 01/18/19 at 02:00 Glucose (Glutose) 22.5 gm Q15M PRN PO DECREASED GLUCOSE; Start 01/18/19 at 02:00 Dextrose (D50w Syringe) 25 ml Q15M PRN IV DECREASED GLUCOSE; Start 01/18/19 at 02:00 Dextrose (D50w Syringe) 50 ml Q15M PRN IV DECREASED GLUCOSE; Start 01/18/19 at 02:00 Glucagon (Glucagen) 1 mg Q15M PRN IM DECREASED GLUCOSE; Start 01/18/19 at 02:00 Glucose (Glutose) 15 gm Q15M PRN BUCCAL DECREASED GLUCOSE; Start 01/18/19 at 02:00 Insulin Aspart (Novolog Insulin Pen) NOVOLOG *MODERATE* ALGORITHM WITH MEALS BEDTIME SC Last administered on 01/21/19at 13:52; Admin Dose 4 UNIT; Start 01/18/19 at 21:00 Diagnostic Test (Pha) (Accu-Chek) ea 02 XX ; Start 01/19/19 at 02:00 VASQUEZ HOLLAND January 21, 2019 14:38
[2019-01-21 21:07] VITALS: BP 105/55; PULSE 63; RESP 20
[2019-01-21] MEDS ORDERED: INSULIN ASPART [NOVOLOG] 3 ML PEN SC ONE (22:00)
[2019-01-22 02:17] VITALS: BP 99/62; PULSE 60; RESP 18
[2019-01-22] MEDS: ACCU-CHEK XX SCH (02:17)
[2019-01-22 08:00] VITALS: BP 102/54; PULSE 61; RESP 18
[2019-01-22] MEDS: INSULIN ASPART [NOVOLOG] 3 ML PEN SC SCH ×2 (08:28→12:05)
--- NOTE | 2019-01-22 10:24 | PN ---
Date/Time of Note Date/Time of Note DATE: 01/22/19 TIME: 10:21 Assessment/Plan VTE Prophylaxis Risk score (from Ns)>0 risk: 2 SCD applied (from Nsg): Yes Pharmacological prophylaxis: other (scds) Lines/Catheters IV C[facility] Type [facility]from [facility]): Saline Lock Assessment/Plan Hospital Course Summary Assessment and Plan: Assessment: Dilated common bile duct- 15mm ERCP 02/20/19 Impression: Significant dilatation of the entire biliary tree with a maximum diameter of 15 mm No no intrahepatic abnormalities i.e. stone, stricture present. 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 Post standard sphincterotomy with excellent drainage. Sweep of the biliary tree disclosed no stones/sludge or other abnormalities. Right upper quadrant pain- resolved Imaging suggestive of cirrhosis -With stigmata of portal hypertension with mild splenomegaly DM, type 2 Over-weight Plan: LFTs about the same min improvement- overall patient appears stable Pt appears stable for out-pt management- she will need to f/u with GI or PCP in 1 week to reassess LFTS Pt to f/u with GI after d/c to review auto-immune tests and for fibro score- to assess cirrhosis seen on imaging She c/o constipation- will add Colace and MiraLAX Patient seen in collaboration with Subjective: Course reviewed with nursing staff Patient interviewed and examined All labs, imaging and other results reviewed Currently no issues, she denies n/v or abdominal pain. She is tolerating diet well. No over night events PHYSICAL EXAMINATION: GENERAL: Alert & oriented x 3, in no acute distress SKIN: No lesions HEAD: Normocephalic, atraumatic, no tenderness. EYES: Pupils equal reactive to light and accommodation, no discharge. EARS/NOSE AND THROAT: Ears normal, nose normal. NECK: Supple, no masses, thyroid normal. CHEST: Inspection within normal limits. CARDIOVASCULAR: Heart: Regular rate and rhythm. RESPIRATORY: Lungs clear to auscultation GASTROINTESTINAL AND LIVER: Abdomen: Soft, RUQ tenderness- resolved, non-d istended, no hernias, no masses, no organomegaly, normoactive bowel sounds. Rectal: Deferred. EXTREMITIES: No cyanosis, clubbing or edema. Result Diagram: 01/19/19 0534 01/22/19 0602 Results 24hrs Laboratory Tests Test 01/21/19 13:49 01/21/19 17:24 01/21/19 21:21 01/22/19 02:16 Bedside Glucose 208 269 H 309 H 209 Test 01/22/19 06:02 01/22/19 08:19 Sodium Level 140 Potassium Level 4.6 Chloride Level 105 Carbon Dioxide Level 24 Anion Gap 11 Blood Urea Nitrogen 14 Creatinine 0.57 Est Glomerular Filtrat > 60 Rate mL/min Glucose Level 178 Calcium Level 8.8 Total Bilirubin 1.1 Direct Bilirubin 0.00 Indirect Bilirubin 1.1 Aspartate Amino 164 H Transf (AST/SGOT) Alanine 261 H Aminotransferase (ALT/SG PT) Alkaline Phosphatase 226 H Total Protein 7.5 # Albumin 4.1 Globulin 3.40 H Albumin/Globulin Ratio 1.20 Bedside Glucose 146 Exam/Review of Systems Exam Vitals Vital Signs Date Temp Pulse Resp B/P (MAP) Pulse Ox O2 O2 Flow FiO2 Time Delivery Rate 01/22/19 98.7 60 18 99/62 (74) 100 02:17 01/21/19 Room Air 14:38 Intake and Output 01/21/19 01/21/19 01/22/19 1414:59 22:59 06:59 IntakeIntake Total 480 ml 600 ml 900 ml BalanceBalance 480 ml 600 ml 900 ml Results Results 24hrs Laboratory Tests Test 01/21/19 13:49 01/21/19 17:24 01/21/19 21:21 01/22/19 02:16 Bedside Glucose 208 269 H 309 H 209 Test 01/22/19 06:02 01/22/19 08:19 Sodium Level 140 Potassium Level 4.6 Chloride Level 105 Carbon Dioxide Level 24 Anion Gap 11 Blood Urea Nitrogen 14 Creatinine 0.57 Est Glomerular Filtrat > 60 Rate mL/min Glucose Level 178 Calcium Level 8.8 Total Bilirubin 1.1 Direct Bilirubin 0.00 Indirect Bilirubin 1.1 Aspartate Amino 164 H Transf (AST/SGOT) Alanine 261 H Aminotransferase (ALT/SG PT) Alkaline Phosphatase 226 H Total Protein 7.5 # Albumin 4.1 Globulin 3.40 H Albumin/Globulin Ratio 1.20 Bedside Glucose 146 Medications Medication Current Medications IV Flush (NS 3 ml) 3 ml PER PROTOCOL IV ; Start 01/18/19 at 01:30 Ondansetron HCl (Zofran Inj) 4 mg Q6H PRN IV NAUSEA/VOMITING; Start 01/18/19 at 01:30 Acetaminophen (Tylenol Tab) 650 mg Q6H PRN PO .PAIN 1-3 OR TEMP Last administered on 01/21/19 21:33; Admin Dose 650 MG; Start 01/18/19 at 01:30 Acetaminophen/ Hydrocodone Bitart ([place] (5/325)) 1 tab Q6H PRN PO .MOD PAIN 4- 6 Last administered on 01/20/19 08:25; Admin Dose 1 TAB; Start 01/18/19 at 01:30 Acetaminophen/ Hydrocodone Bitart ([place] (5/325)) 2 tab Q6H PRN PO .SEVERE PAIN 7-10 Last administered on 01/18/19 22:22; Admin Dose 2 TAB; Start 01/18/19 at 01:30 Albuterol/ Ipratropium (Duoneb) 3 ml Q2H RESP THERAPY PRN HHN SHORTNESS OF BREATH; Start 01/18/19 at 01:30 Miscellaneous Information 1 ea NOTE XX ; Start 01/18/19 at 02:00 Glucose (Glutose) 15 gm Q15M PRN PO DECREASED GLUCOSE; Start 01/18/19 at 02:00 Glucose (Glutose) 22.5 gm Q15M PRN PO DECREASED GLUCOSE; Start 01/18/19 at 02:00 Dextrose (D50w Syringe) 25 ml Q15M PRN IV DECREASED GLUCOSE; Start 01/18/19 at 02:00 Dextrose (D50w Syringe) 50 ml Q15M PRN IV DECREASED GLUCOSE; Start 01/18/19 at 02:00 Glucagon (Glucagen) 1 mg Q15M PRN IM DECREASED GLUCOSE; Start 01/18/19 at 02:00 Glucose (Glutose) 15 gm Q15M PRN BUCCAL DECREASED GLUCOSE; Start 01/18/19 at 02:00 Insulin Aspart (Novolog Insulin Pen) NOVOLOG *MODERATE* ALGORITHM WITH MEALS BE DTIME SC Last administered on 01/22/19 08:28; Admin Dose 2 UNIT; Start 01/18/19 at 21:00 Diagnostic Test (Pha) (Accu-Chek) 1 ea 02 XX Last administered on 01/22/19 02:17; Admin Dose 1 EA; Start 01/19/19 at 02:00 TARSHA RICE January 22, 2019 10:24
[2019-01-22] MEDS ORDERED: DOCUSATE SODIUM 100 MG CAP PO SCH (10:30)
[2019-01-22] MEDS ORDERED: POLYETHYLENE GLYCOL 17 GM PACKET PO SCH (10:30)
--- NOTE | 2019-01-22 14:44 | PDOCDIS ---
Discharge Instructions CONDITION [id number] Patient Condition: [id number] Good HOME CARE INSTRUCTIONS: [id number] Diet Instructions: [id number] Reduced Calorie ACTIVITY: [id number] Activity Restrictions: [id number] No Restrictions FOLLOW UP/APPOINTMENTS Follow-up Plan Follow-up with your PCP in 1 to 2 weeks to assess liver function tests, follow- up with GI- VASQUEZ Adams January 22, 2019 14:44
--- NOTE | 2019-01-22 14:48 | DS ---
Date/Time of Note Date/Time of Note DATE: 01/22/19 TIME: 14:45 Discharge Summary Admission/Discharge Info Admit Date/Time January 18, 2019 at 00:13 Discharge Date/Time January 22, 2019 Discharge Diagnosis 1. Right upper quadrant pain secondary to dilation of the biliary tree secondary to distal common bile duct/papillary stricture with poor emptying Patient is now status post ERCP with sphincterotomy, no stones or sludge noted, no stenosis noted Patient had been having constant right upper quadrant pain for 1 month but has not resolved Patient with a history of cholecystectomy in the remote past MRCP shows mild intrahepatic and moderate extrahepatic biliary ductal dilatation without evidence of choledocholithiasis, cirrhosis with stigmata of portal hypertension and mild splenomegaly also noted GI consultation appreciated LFTs slightly improved, follow-up with PCP for further LFT analysis 2. Cirrhosis likely secondary to obesity and LEONARD Weight loss Hepatitis panel is negative Follow-up with GI 3. DMII Continue home regimen A1c 9.4 Patient Condition: Good Hospital Course Patient is a 53-year-old female with a history of diabetes and obesity as well as cholecystectomy in the remote past, patient presented with right upper quadrant pain for 1 month, MRCP showed mild intrahepatic and moderate extrahepatic biliary ductal dilation without evidence of choledocholithiasis. MRCP also showed cirrhosis with stigmata of portal hypertension and mild splenomegaly. Patient was seen by GI and underwent ER CP with sphincterotomy, no stenosis, stones or sludge were noted and patient's abdominal pain subsequently did improve. Patient did continue to have slightly elevated LFTs but were mostly improving. Patient will need follow-up with PCP for further LFT analysis, and with GI for further cirrhosis work-up. Patient was clear for DC per GI, on the day of discharge patient vitals, labs and physical exam are stable. Home Meds Reported Medications Atorvastatin* (Atorvastatin*) 40 Mg Tablet, PO BID, #30 TAB 01/18/19 Glipizide* (Glipizide*) 5 Mg Tablet, PO BID, TAB 01/18/19 Metformin* (Glucophage*) 1,000 Mg Tablet, 1000 MG PO BID PRN for ELEVATED GLUCOSE, #60 TAB 01/18/19 Follow-up Plan Follow-up with your PCP in 1 to 2 weeks to assess liver function tests, follow- up with JACKIE- Dr Haynes Primary Care Provider Care Physician No Primary Time spent on discharge: > 30 minutes VASQUEZ HOLLAND January 22, 2019 14:48
[2019-01-22 14:56] VITALS: BP 100/51; PULSE 63; RESP 17
== END 2019-01-22 16:25 | disposition home or self-care (01) | DRG 445 ==
LOC: PP2 01-18 00:13
PROVIDERS: ADMIT Internal Medicine; ATTEND Internal Medicine
PROC: BF11YZZ Fluoroscopy of Biliary and Pancreatic Ducts using Other Contrast (ICD-10-PCS; 2019-01-20)
PROC: 0FJB8ZZ Inspection of Hepatobiliary Duct, Via Natural or Artificial Opening Endoscopic (ICD-10-PCS; principal; 2019-01-20 17:00)
DX: K83.1 Obstruction of bile duct (principal); K76.6 Portal hypertension; K74.69 Other cirrhosis of liver; K75.81 Nonalcoholic steatohepatitis (NASH); E11.9 Type 2 diabetes mellitus without complications; E78.5 Hyperlipidemia, unspecified; E66.9 Obesity, unspecified; Z68.34 Body mass index [BMI] 34.0-34.9, adult; Z71.3 Dietary counseling and surveillance; Z79.4 Long term (current) use of insulin; Z90.49 Acquired absence of other specified parts of digestive tract
CPT/HCPCS: 74181; 74330; 80053; 80061; 81001; 82787; 82962; 83036; 83690; 83735; 84100; 84703; 85025; 85610; 85730; 86038; 86255; 86376; 86704; 86709; 86803; 87081; 87340; J1100; J1815; J2001; J2250; J2370; J2405; J3010; J7042; Q9967

== ENCOUNTER 2019-01-29 06:42 | Emergency (ER) | payer OTHER ==
[~2019-01-29] VITALS: Ht 157.5 cm; Wt 67.6 kg
[~2019-01-29 06:42] MED LIST: ATOR40TA68 PO; GLIP5TAB13 PO; MTF1000T PO
[2019-01-29 06:49] VITALS: Ht 157.5 cm; Wt 67.6 kg
[2019-01-29] MEDS ORDERED: SOD CHLORIDE 0.9% 1,000 ML IV STA ×2 (07:03→10:23)
[2019-01-29] MEDS ORDERED: ONDANSETRON 4 MG INJ IV STA (07:03)
[2019-01-29] MEDS ORDERED: morphine 4 MG/ML VIAL IV STA (07:03)
--- NOTE | 2019-01-29 08:04 | ERD ---
ER Documentation Chief Complaint Chief Complaint C/O RIGHT UQ ABD. PAIN FOR 2 DAYS; ERCP ON 01/20/19. NO N/V/D. ABD. TENDER. HPI This is a 53-year-old female that presents to the emergency department complaining of abdominal pain. The patient indicates that the pain is in the epigastric region and radiates to the right upper quadrant. She indicates that the pain has been persistent since her discharge on January 22, 2019 roughly 7 days prior to arrival. She indicates however that for the past 48 hours the pain has worsened. She states the pain is 10 out of 10 in intensity. She is felt nauseous but has not experienced any emesis. The patient had been admitted to [facility] on January 18, 2019. At that time she was also complaining of right upper quadrant pain. She had an ERCP that was performed with sphincterotomy. There is no stones or sludge that was noted. There is no stenosis that was noted. The patient did have dilatation of the biliary tree that was secondary to distal common bile duct. The patient had a papillary stricture with poor emptying. She also had an MRCP that showed mild intrahepati c and moderate extra hepatic biliary ductal dilatation with no evidence of choledocholithiasis. The patient at that time had elevation of her LFTs but they had improved. The patient also has known history of cirrhosis that is likely secondary to obesity and Wilson as the patient does not consume any alcohol. The patient has a history of insulin-dependent diabetes mellitus. She is been compliant with her medications. She denies any diarrhea. She has no shortness of breath at rest or exertion. She was instructed to follow-up with the GI physician Dr. Roselia buchanan but has not yet been able to do that if she has an appointment next week. The patient has no chest pain. ROS All systems reviewed and are negative except as per history of present illness. Medications Home Meds Reported Medications Atorvastatin* (Atorvastatin*) 40 Mg Tablet, PO BID, #30 TAB 01/18/19 Glipizide* (Glipizide*) 5 Mg Tablet, PO BID, TAB 01/18/19 Metformin* (Glucophage*) 1,000 Mg Tablet, 1000 MG PO BID PRN for ELEVATED G LUCOSE, #60 TAB 01/18/19 Allergies Allergies: Coded Allergies: Penicillins (Verified Allergy, Mild, rash, 01/29/19) PMhx/Soc History of Surgery: Yes (Cholystectomy) Anesthesia Reaction: No Hx Neurological Disorder: No Hx Respiratory Disorders: No Hx Cardiac Disorders: No Hx Psychiatric Problems: No Hx Miscellaneous Medical Probl: No Hx Alcohol Use: No Hx Substance Use: No Hx Tobacco Use: No Physical Exam Vitals Vital Signs Date Temp Pulse Resp B/P (MAP) Pulse Ox O2 O2 Flow FiO2 Time Delivery Rate 01/29/19 97.9 77 17 101/64 100 Room Air 09:25 (76) 01/29/19 97.3 72 18 144/69 98 06:49 (94) Physical Exam Constitutional:Well-developed. Well-nourished. HEENT:Normocephalic. Atraumatic.Pupils were equal round reactive to light. Moist mucous membranes.No tonsillar exudates. Neck: No nuchal rigidity. No lymphadenopathy. No posterior cervical spine tenderness or step-offs. Respiratory: Not using accessory muscles of respiration.Lungs were clear to auscultation bilaterally. No rhonchi. No rales. No wheezing. Cardiovascular: Regular rate regular rhythm.No murmurs. No rubs were appreciated.S1, S2 normal. Distal pulses are palpable 2+ bilaterally. GI: Abdomen was obese so exam is limited due to body habitus. Tenderness in the right upper quadrant. Non Distended. No pulsatile abdominal masses or bruits. No rebound. No guarding. Bowel sounds were present and normal. Muscle skeletal: Full range of motion of both the upper and lower extremities bilaterally.Normal muscle tone.No assymetrical calf tenderness or swelling. Skin: No petechia, no purpura. No lesions on the palms or the soles of the feet. No maculopapular rash. NEURO: Patient was alert, awake, orientated x3.No facial droop. Gait observed and normal with no ataxia.Speech had regular rate and rhythm. No focal neurological deficits. Result Diagram: 01/29/19 0745 01/29/19 0745 Results 24 hrs Laboratory Tests Test 01/29/19 07:45 White Blood Count 6.3 10^3/ul Red Blood Count 4.23 10^6/ul Hemoglobin 12.1 g/dl Hematocrit 37.2 % Mean Corpuscular Volume 87.9 fl Mean Corpuscular Hemoglobin 28.6 pg Mean Corpuscular Hemoglobin Concent 32.5 g/dl Red Cell Distribution Width 13.4 % Platelet Count 156 10^3/UL Mean Platelet Volume 11.7 fl Immature Granulocytes % 0.300 % Neutrophils % 35.8 % Lymphocytes % 40.7 % Monocytes % 6.2 % Eosinophils % 16.7 % Basophils % 0.3 % Nucleated Red Blood Cells % 0.0 /100WBC Immature Granulocytes # 0.020 10^3/ul Neutrophils # 2.3 10^3/ul Lymphocytes # 2.6 10^3/ul Monocytes # 0.4 10^3/ul Eosinophils # 1.1 10^3/ul Basophils # 0.0 10^3/ul Nucleated Red Blood Cells # 0.0 10^3/ul Prothrombin Time 13.0 Sec Prothrombin Time Ratio 1.0 INR International Normalized Ratio 0.97 Activated Partial Thromboplast Time 29.7 Sec Sodium Level 142 mmol/L Potassium Level 4.1 mmol/L Chloride Level 107 mmol/L Carbon Dioxide Level 27 mmol/L Anion Gap 8 Blood Urea Nitrogen 12 mg/dl Creatinine 0.50 mg/dl Est Glomerular Filtrat Rate mL/min > 60 mL/min Glucose Level 92 mg/dl Calcium Level 9.6 mg/dl Total Bilirubin 0.9 mg/dl Direct Bilirubin 0.00 mg/dl Indirect Bilirubin 0.9 mg/dl Aspartate Amino Transf (AST/SGOT) 33 IU/L Alanine Aminotransferase (ALT/SGPT) 55 IU/L Alkaline Phosphatase 153 IU/L Troponin I < 0.012 ng/ml Total Protein 8.2 g/dl Albumin 4.3 g/dl Globulin 3.90 g/dl Albumin/Globulin Ratio 1.10 Amylase Level 184 U/L Lipase 162 U/L Current Medications Medications Dose Sig/Karol Start Time Status Last (Trade) Ordered Route PRN Stop Time Admin Dose Reason Admin Sodium 1,000 ml @ Q1H STAT 01/29/19 DC 01/29/19 Chloride 1,000 mls/hr IV 07:03 07:56 01/29/19 08:02 Morphine 4 mg ONCE STAT 01/29/19 DC 01/29/19 Sulfate IV 07:03 07:56 (morphine) 01/29/19 07:05 Ondansetron 4 mg ONCE STAT 01/29/19 DC 01/29/19 HCl (Zofran IV 07:03 07:55 Inj) 01/29/19 07:05 IV Flush 10 ml STK-MED 01/29/19 DC 01/29/19 (NS 10 ml) ONCE .ROUTE 08: 08:30 01/29/19 08:23 Sodium 100 ml @ ud STK-MED 01/29/19 DC 01/29/19 Chloride ONCE .ROUTE 08: 08:30 01/29/19 08:23 Iohexol 150 ml STK-MED 01/29/19 DC 01/29/19 (Omnipaque ONCE .ROUTE 08: 08:31 300mg/ ml) 01/29/19 08:23 Procedures/MDM This patient presented to the emergency department with abdominal pain and was seen and evaluated by myself. My differential diagnosis included but was not limited to abdominal aortic aneurysm, appendicitis, pancreatitis, perforated peptic ulcer, perforated viscus, Boerhaaves syndrome or visceral pain such as diverticulitis, DKA, esophagitis, hepatitis or bowel obstruction. The patient was placed on a target worker, continuous pulse oximetry, and IV access was established by nursing staff. Patient was given intravenous morphine and Zofran. I obtained a 12-lead EKG tracing developed for atypical myocardial infarction. 12 Lead EKG tracing ordered and reviewed by myself showed: Normal sinus rhythm of 71 bpm and no arrhythmia. ME interval normal. QRS duration normal. No ST segment elevation No ST segment depression. No changes consistent with acute ischemia. Given that the patient had recent instrumentation with an MRCP and ERCP I did feel is necessary to obtain a CT scan of the abdomen to rule out for perforation as the patient did appear to be in a significant amount discomfort. CT scan reviewed by myself and the radiologist indicate the followin. No evidence of an acute inflammatory process. 2. Cholecystectomy. Mild dilatation of the intrahepatic biliary system, common bile duct dilated to a diameter of 12 mm. Appearance is similar compared with previous MRCP of 01/18/2019 and may represent chronic postsurgical ectasia. No obstructing stone or lesion is otherwise identified. 3. Mild diverticulosis of the sigmoid colon. Patient no severe electrolyte abnormalities. No evidence of urinary tract infection. She was also given a GI cocktail. The patient is scheduled to follow-up with the GI physician Dr. Haynes. The patient was discharged home in fair condition. They were instructed to return to the emergency department at any time if there was any worsening of their condition. The patient stated they would follow up with their PCP in the next 24-48 hours to initiate a suitable medication regimen under the care of their PCP as well as to allow their PCP to monitor any drug reactions. The patient was discharged home with prescriptions after they gave informed consent to the new medication. They were also fully informed by myself on the adverse effects and adverse drug interactions in order to provide adequate safeguards to prevent possible adverse reactions to medications. Departure Diagnosis: Primary Impression: Diverticulosis Additional Impression: Epigastric pain Condition: ROHAN Powers MD January 29, 2019 08:04
[2019-01-29] MEDS ORDERED: SOD CHLORIDE 0.9% 100 ML ONE (08:22)
[2019-01-29] MEDS ORDERED: IOHEXOL 300MG/ML 150 ML BTL ONE (08:22)
[2019-01-29] MEDS ORDERED: ATOR20TA38 PO (10:22)
[2019-01-29] MEDS ORDERED: GLIP10TA14 PO (10:22)
[2019-01-29] MEDS ORDERED: METF100010 PO (10:23)
[2019-01-29] MEDS ORDERED: OMEP20CA16 PO (10:23)
[2019-01-29] MEDS ORDERED: PIOG30TA71 PO (10:24)
[2019-01-29] MEDS ORDERED: SIME80TA16 PO (10:24)
[2019-01-29] MEDS ORDERED: HYDR-4011 PO (11:50)
[2019-01-29 11:57] VITALS: BP 99/62; PULSE 78; RESP 18
--- NOTE | 2019-01-30 14:30 | RADRPT ---
Vent Rate: 71 bpm RR Interval: 0 msec HI Interval: 154 msec QRS Duration: 84 msec QT Interval: 434 msec QTC Interval: 471 msec P-R-T [place]: 65 - 39 - 39 degrees Normal sinus rhythm Cannot rule out Anterior infarct , age undetermined Abnormal ECG Electronically Signed By: [facility]
== END 2019-01-29 11:58 | disposition home or self-care (01) ==
LOC: E/R 06:42
DX: K57.30 Diverticulosis of large intestine without perforation or abscess without bleeding (principal); E11.9 Type 2 diabetes mellitus without complications; Z79.84 Long term (current) use of oral hypoglycemic drugs
CPT/HCPCS: 74177; 80053; 82150; 83690; 84484; 85025; 85610; 85730; 93005; 96361; 96374; 96375; J2270; J2405; J7030; Q9967; Z7502; Z7610

== ENCOUNTER 2019-02-28 08:41 | Emergency (ER) | payer OTHER ==
[~2019-02-28] VITALS: Ht 149.9 cm; Wt 68.4 kg
[~2019-02-28 08:41] MED LIST changes: +ATOR20TA38 PO; -ATOR40TA68 PO; +GLIP10TA14 PO; -GLIP5TAB13 PO; +HYDR-4011 PO; +METF100010 PO; -MTF1000T PO; +OMEP20CA16 PO; +PIOG30TA71 PO; +SIME80TA16 PO
[2019-02-28 08:45] VITALS: Ht 149.9 cm; Wt 68.4 kg
[2019-02-28] MEDS ORDERED: ONDANSETRON 4 MG INJ IV STA (10:08)
[2019-02-28] MEDS ORDERED: HYDROmorphONE 1 MG/ML SYG IV STA (10:08)
[2019-02-28] MEDS ORDERED: SOD CHLORIDE 0.9% 1,000 ML IV STA (10:08)
--- NOTE | 2019-02-28 10:24 | ERD ---
ER Documentation Chief Complaint Chief Complaint c/o abd pain x 1 month , headache x 5 days HPI This is a 53-year-old [place] Islander-speaking female that presents to the emergency department complaining of persistent abdominal pain for 1 month. She states the pain is located to the epigastric region and does radiate to the back. The pat phil had been admitted to the hospital on January 18, 2019 at [facility] for the same pain. The patient had an ERCP with sphincterotomy. There was no stones or sludge that have been noted. The patient had a previous cholecystectomy over 18 years ago. The patient also underwent an MRCP that showed mild intra-hepatic and moderate extrahepatic biliary ductal dilatation however there is no evidence of choledocholithiasis. The patient does have a known history of cirrhosis secondary to obesity and Wilson. The patient has a history of type 2 diabetes mellitus. She indicates that she had been further evaluated in the emergency department by myself on January 29, 1 month prior to arrival and had a CT scan of the abdomen indicated diverticulosis. The patient had been given a prescription of [place] which she states she has been taking but this does not improve her pain. She went to her primary care physician's office due to the persistent abdominal pain. The physician was from an urgent care clinic today she states she is never seen before and was prescribed Ultram as well as a Z-Arun on February 12, 2019. She completed this 10 days ago but indicates her pain has not improved. She had no fevers or shaking or chills. She denies any hemoptysis hematemesis or melanotic stools. She describes the pain as a sharp stabbing pain. There is no alleviating or exacerbating factors to the pain. the patient also indicates that she is been experiencing a bandlike headache for the past 5 days. She states this is not the worst headache of her life. She denies any neck pain. She has had similar headaches in the past. She states the headache is 3 out of 10 in intensity. ROS All systems reviewed and are negative except as per history of present illness. Medications Home Meds Active Scripts Hydrocodone/Acetaminophen ([place] 5-325 Tablet) 1 Each Tablet, 1 EACH PO Q6, #20 TAB Prov:ROHAN DOMINIQUE MD 01/29/19 Reported Medications Simethicone (Mi-Acid) 80 Mg Tab.chew, 80 MG PO DAILY, TAB.CHEW 01/29/19 Pioglitazone Hcl* (Pioglitazone Hcl*) 30 Mg Tablet, 30 MG PO DAILY, TAB 01/29/19 Omeprazole* (Omeprazole*) 20 Mg Capsule.dr, 20 MG PO DAILY, #30 CAP 01/29/19 Metformin Hcl* (Metformin Hcl*) 1,000 Mg Tablet, 1000 MG PO WITH BREAKFAST DINN E, #60 TAB 01/29/19 Atorvastatin Calcium* (Atorvastatin Calcium*) 20 Mg Tablet, 20 MG PO QHS, #30 TAB 01/29/19 Glipizide* (Glipizide*) 10 Mg Tablet, 10 MG PO AC BREAKFAST DINNER, TAB 01/29/19 Allergies Allergies: Coded Allergies: Penicillins (Verified Allergy, Mild, rash, 02/28/19) PMhx/Soc History of Surgery: Yes (Cholystectomy) Anesthesia Reaction: No Hx Neurological Disorder: No Hx Respiratory Disorders: No Hx Cardiac Disorders: No Hx Psychiatric Problems: No Hx Miscellaneous Medical Probl: Yes (dm, high inder) Hx Alcohol Use: No Hx Substance Use: No Hx Tobacco Use: No Smoking Status: Never smoker Physical Exam Vitals Vital Signs Date Temp Pulse Resp B/P (MAP) Pulse Ox O2 O2 Flow FiO2 Time Delivery Rate 02/28/19 92 14 114/63 100 11:21 (80) 02/28/19 98.5 85 18 130/81 99 08:45 (97) Physical Exam Constitutional:Well-developed. Well-nourished. HEENT:Normocephalic. Atraumatic.Pupils were equal round reactive to light. Moist mucous membranes. No nuchal rigidity. No lymphadenopathy. Respiratory: Not using accessory muscles of respiration.Lungs were clear to auscultation bilaterally. No rhonchi. No rales. No wheezing. Cardiovascular: Regular rate regular rhythm.No murmurs. No rubs were appreciated.S1, S2 normal. Distal pulses are palpable 2+ bilaterally. GI: Abdomen was soft. Epigastric tenderness. Tenderness in the right upper quadrant. No tenderness in the right lower quadrant over McBurney's point. Psoas sign negative . obturator sign negative. No tenderness in the left lower quadrant.. Non Distended. No pulsatile abdominal masses or bruits. No rebound. No guarding. Bowel sounds were present and normal. Muscle skeletal: Full range of motion of both the upper and lower extremities bilaterally.Normal muscle tone.No assymetrical calf tenderness or swelling. Skin: No petechia, no purpura. No lesions on the palms or the soles of the feet. No maculopapular rash. NEURO: Patient was alert, awake, orientated x3.No facial droop. Gait observed and normal with no ataxia.Speech had regular rate and rhythm. No focal neurological deficits. Result Diagram: 02/28/19 1020 02/28/19 1020 Results 24 hrs Laboratory Tests Test 02/28/19 10:20 White Blood Count 9.8 10^3/ul Red Blood Count 4.41 10^6/ul Hemoglobin 12.9 g/dl Hematocrit 38.6 % Mean Corpuscular Volume 87.5 fl Mean Corpuscular Hemoglobin 29.3 pg Mean Corpuscular Hemoglobin Concent 33.4 g/dl Red Cell Distribution Width 13.5 % Platelet Count 152 10^3/UL Mean Platelet Volume 10.9 fl Immature Granulocytes % 0.100 % Neutrophils % 58.6 % Lymphocytes % 23.9 % Monocytes % 6.4 % Eosinophils % 10.8 % Basophils % 0.2 % Nucleated Red Blood Cells % 0.0 /100WBC Immature Granulocytes # 0.010 10^3/ul Neutrophils # 5.7 10^3/ul Lymphocytes # 2.3 10^3/ul Monocytes # 0.6 10^3/ul Eosinophils # 1.1 10^3/ul Basophils # 0.0 10^3/ul Nucleated Red Blood Cells # 0.0 10^3/ul Prothrombin Time 12.4 Sec Prothrombin Time Ratio 1.0 INR International Normalized Ratio 0.91 Activated Partial Thromboplast Time 29.1 Sec Urine Color YELLOW Urine Clarity SLIGHTLY CLOUDY Urine pH 5.0 Urine Specific [place] 1.014 Urine Ketones NEGATIVE mg/dL Urine Nitrite NEGATIVE mg/dL Urine Bilirubin NEGATIVE mg/dL Urine Urobilinogen NEGATIVE mg/dL Urine Leukocyte Esterase NEGATIVE Ange/ul Urine Microscopic RBC 1 /HPF Urine Microscopic WBC 3 /HPF Urine Squamous Epithelial Cells FEW /HPF Urine Hemoglobin NEGATIVE mg/dL Urine Glucose NEGATIVE mg/dL Urine Total Protein NEGATIVE mg/dl Sodium Level 140 mmol/L Potassium Level 4.3 mmol/L Chloride Level 103 mmol/L Carbon Dioxide Level 28 mmol/L Anion Gap 9 Blood Urea Nitrogen 9 mg/dl Creatinine 0.53 mg/dl Est Glomerular Filtrat Rate mL/min > 60 mL/min Glucose Level 88 mg/dl Calcium Level 9.9 mg/dl Total Bilirubin 1.0 mg/dl Direct Bilirubin 0.00 mg/dl Indirect Bilirubin 1.0 mg/dl Aspartate Amino Transf (AST/SGOT) 32 IU/L Alanine Aminotransferase (ALT/SGPT) 32 IU/L Alkaline Phosphatase 129 IU/L Troponin I < 0.012 ng/ml Total Protein 8.3 g/dl Albumin 4.6 g/dl Globulin 3.70 g/dl Albumin/Globulin Ratio 1.24 Amylase Level 180 U/L Lipase 383 U/L Current Medications Medications Dose Sig/Karol Start Time Status Last (Trade) Ordered Route PRN Stop Time Admin Dose Reason Admin Sodium 1,000 ml @ Q1H STAT 02/28/19 DC 02/28/19 Chloride 1,000 mls/hr IV 10:08 11:09 02/28/19 11:07 1 mg ONCE STAT 02/28/19 DC 02/28/19 Hydromorphone IV 10:08 11:10 HCl 02/28/19 10:09 (Dilaudid) Ondansetron 4 mg ONCE STAT 02/28/19 DC 02/28/19 HCl (Zofran IV 10:08 11:09 Inj) 02/28/19 10:09 40 ml ONCE STAT 02/28/19 DC Miscellaneous PO 11:21 Medication 02/28/19 11:22 (Gi Cocktail (2)) [place]/ 2 tab ONCE STAT 02/28/19 DC Phenobarbital PO 11:21 () 02/28/19 11:22 IV Flush 10 ml STK-MED 02/28/19 DC 02/28/19 (NS 10 ml) ONCE .ROUTE 11: 11:35 02/28/19 11:30 Sodium 100 ml @ ud STK-MED 02/28/19 DC 02/28/19 Chloride ONCE .ROUTE 11: 11:36 02/28/19 11:30 Iohexol 150 ml STK-MED 02/28/19 DC 02/28/19 (Omnipaque ONCE .ROUTE 11: 11:36 300mg/ ml) 02/28/19 11:30 Procedures/MDM The patient presented to the emergency department with epigastric pain. My differential diagnosis included but was not limited to abdominal aortic aneurysm, choledocholithiasis, gallstone ileus, renal colic, pyelonephritis, pancreatitis, peptic ulcer disease, atypical myocardical infarction, mesenteric ischemia, GERD, pulmonary infarction. The patient was placed on a cardiac exercise specialist, continuous pulse oximetry and IV access was established by nursing staff. Patient was given intravenous Dilaudid and Zofran for analgesia control. An EKG was obtained to rule out myocardial ischemia. There was no elevation of LFTs to suggest ductal obstruction, cholangitis, cholecystiitis or hepatitis. Given that the urinalysis did not show bilirubinuria, my suspicion for common duct obstruction or hepatitis was low. 12 Lead EKG tracing ordered and reviewed by myself showed: Normal sinus rhythm of 81 bpm and no arrhythmia. ND interval normal. QRS duration normal. No ST segment elevation No ST segment depression. No changes consistent with acute ischemia. Q waves present in the inferior lead III however no Q waves are present in 2 or aVF. The patient had a CT scan of the abdomen that was ordered and reviewed by myself on January 29, 2019, 1 month prior to arrival. This was reviewed by the radiologist and indicated the followin. No evidence of an acute inflammatory process. 2. Cholecystectomy. Mild dilatation of the intrahepatic biliary system, common bile duct dilated to a diameter of 12 mm. Appearance is similar compared with previous MRCP of 01/18/2019 and may represent chronic postsurgical ectasia. No obstructing stone or lesion is otherwise identified. 3. Mild diverticulosis of the sigmoid colon. The patient's pain was 10 out of 10 in intensity despite receiving analgesic medication. I did feel is necessary at this time to repeat the CT scan of the abdomen as she did have voluntary guarding on physical exam. Hepatic cirrhosis is seen with splenomegaly and upper abdominal varices along with trace ascites and mild upper abdominal adenopathy likely reactive in nature. The proximal colon and distal small bowel are distended with fecal material suggestive for bowel stasis without obstruction. The distal colon is collapsed resulting in a thickened appearance of the colonic wall . There is diverticulosis without diverticulitis. Atherosclerotic disease is present. The patient had a mild elevation in her lipase and amylase however there is no evidence of pancreatitis. The patient had been given a GI cocktail which improved her pain. I indicated the patient I did not have an exact etiology into her symptoms but she would benefit from an outpatient upper endoscopy as I cannot rule out peptic ulcer disease. The patient stated that she had been having difficulty getting authorization to follow-up with a new primary care physician. I did phone her referred primary care physician and set up an ap pointment and they stated they will arrange for an outpatient upper endoscopy to be performed. Departure Diagnosis: Primary Impression: Epigastric pain Condition: ROHAN Powers MD Feb 28, 2019 10:24
[2019-02-28] MEDS ORDERED: BELLADONNA/PHENOBARBITAL TAB PO STA (11:21)
[2019-02-28] MEDS ORDERED: LIDOCAINE/MYLANTA 40 ML BTL PO STA (11:21)
[2019-02-28] MEDS ORDERED: IOHEXOL 300MG/ML 150 ML BTL ONE (11:29)
[2019-02-28] MEDS ORDERED: SOD CHLORIDE 0.9% 100 ML ONE (11:29)
[2019-02-28] MEDS ORDERED: SUCR1TAB56 PO (12:15)
[2019-02-28] MEDS ORDERED: PANT40TA3 PO (12:15)
[2019-02-28] MEDS ORDERED: HYDR-4011 PO (12:37)
[2019-02-28 12:47] VITALS: BP 126/76; PULSE 72; RESP 19
== END 2019-02-28 12:47 | disposition home or self-care (01) ==
LOC: E/R 08:41
DX: R10.13 Epigastric pain (principal); E11.9 Type 2 diabetes mellitus without complications; Z79.84 Long term (current) use of oral hypoglycemic drugs
CPT/HCPCS: 36415; 74177; 80053; 81001; 81003; 82150; 83690; 84484; 85025; 85610; 85730; 87086; 93005; 96374; 96375; J1170; J2405; J7030; Q9967; Z7502; Z7610